=== PATIENT | female | born 1950 | race Caucasian/White ===

== ENCOUNTER → 2018-01-30 10:17 | Outpatient (CLI) | payer MEDICARE, SELFPAY ==
--- NOTE | 2018-01-30 | DI.MRI.S_ITS ---
PROCEDURE: MR KNEE RT WO CON INDICATIONS: UNILATERAL PRIMARY OSTEOARTHRITIS OF RIGHT KNEE TECHNIQUE: Noncontrast sagittal PD fast spin echo and T2 fast spin echo with fat saturation, sagittal 3-D FLASH with fat saturation; coronal T1 spin echo and PD fast spin echo with fat saturation, and axial PD fast spin echo with fat saturation through the knee. COMPARISON: [facility], CR, XR KNEE ARTHRITIC SERIES RT, 12/18/2017, 8:35. FINDINGS: Image quality: Excellent. Menisci: The medial meniscus is within normal limits. There is lateral extrusion of the lateral meniscus. Amorphous high signal intensity within the anterior and posterior horns, as well as the body of the lateral meniscus is present, demonstrating superior and inferior articular surface extension, indicating severe diffuse degenerative tearing. Cruciate ligaments: Posterior cruciate ligament is intact. Anterior cruciate ligament is attenuated. Medial structures: The medial collateral ligament appears intact. Visualized portions of the pes anserinus tendons appear normal. No abnormal bursal fluid. Lateral structures: The lateral collateral ligament demonstrates moderate T2 signal elevation at the femoral insertion site. The long and short heads of the biceps femoris tendon appear intact. The popliteus tendon appears normal. Iliotibial band appears normal. Anterior structures: The quadriceps and patellar tendons appear intact. Patellar alignment is normal. No femoral trochlear dysplasia or ventral trochlear prominence. No edema in the infrapatellar fat pad. Bones and cartilage: No bone marrow contusions or fractures. There is severe tricompartmental periarticular osteophyte formation. There is mild ill-defined subchondral T2 signal elevation within the posterior aspect of the lateral femoral condyle as well as the weightbearing aspect of the lateral tibial plateau. Severe diffuse articular cartilage loss overlies the weightbearing aspects of the lateral femoral condyle and lateral tibial plateau. Moderate to severe articular cartilage loss overlies the weightbearing aspects of the medial femoral condyle. Moderate diffuse articular cartilage loss overlies the weightbearing aspects of the medial tibial plateau. This moderately to cartilage loss overlies the lateral patellar facet adjacent to the apex. Severe articular cartilage loss overlies the patellar apex and adjacent aspect of the medial patellar facet. Joint space: There is a large knee joint effusion and a small Calloway's cyst. Multiple intra-articular loose bodies are present, largest of which are in the posterior midportion of the joint measuring roughly 5-6 mm diameter. Small ganglion cyst along the popliteus is present. Normal appearing synovial plicae are incidentally noted. IMPRESSION: 1. Tricompartmental osteoarthritis with associated articular cartilage loss. 2. Partial thickness ACL tear. 3. Severe degenerative tearing of the lateral meniscus. 4. Partial-thickness lateral collateral ligament tear. 5. Joint effusion and intra-articular bodies. Small Calloway's cyst. Small ganglion cyst along the popliteus. Dictated by: Thomas Krause M.D. on 01/30/2018 at 11:47 Approved by: Thomas Krause M.D. on 01/30/2018 at 11:54
== END ==
PROVIDERS: PCP Internal Medicine; Visit Provider Orthopaedic Surgery
DX: M17.11 Unilateral primary osteoarthritis, right knee (principal); S83.511A Sprain of anterior cruciate ligament of right knee, initial encounter; S83.421A Sprain of lateral collateral ligament of right knee, initial encounter; M23.261 Derangement of other lateral meniscus due to old tear or injury, right knee; M25.461 Effusion, right knee; M71.21 Synovial cyst of popliteal space [Baker], right knee; M67.461 Ganglion, right knee
CPT/HCPCS: 73721

== ENCOUNTER → 2018-03-24 12:14 | Outpatient (CLI) | payer MEDICARE, SELFPAY ==
[2018-03-24 12:53] LABS: Add Manual Diff / Slide Review NO; Basophils Percent Auto 1.1 % (0-2); Eosinophils Percent Auto 2.2 % (2-4); Hematocrit 40.8 % (36-46); Hemoglobin 13.4 g/dL (12.0-16.0); Lymphocytes Percent Auto 29.6 % (25-40); Mean Corpuscular HGB Conc 32.9 % (30-36); Mean Corpuscular Hemoglobin 31.7 PG (26-34); Mean Corpuscular Volume 96.5 fL (80-100); Monocytes Percent Auto 7.5 % (3-14); Neutrophils Absolute Auto 3800 /uL (3000-5900); Neutrophils Percent Auto 59.6 % (50-75); Platelet Count 282 X10^3/uL (150-400); Red Blood Cell Count 4.23 X10^6/uL (4.0-5.2); Red Cell Distribution Width 13.8 % (11.6-14.8); White Blood Cell Count 6.4 X10^3/uL (4.5-11.0)
[2018-03-24 13:44] LABS: Carbon Dioxide 30 mmol/L (22-32); Chloride 101 mmol/L (98-107); HEMOLYSIS < 15 (0-50); Potassium 4.9 mmol/L (3.4-5.1); Sodium 144 mmol/L (137-145)
== END ==
PROVIDERS: PCP Internal Medicine; Visit Provider Internal Medicine
DX: Z01.818 Encounter for other preprocedural examination (principal)
CPT/HCPCS: 36415; 80051; 85025

== ENCOUNTER 2018-03-25 12:43 | Day surgery (SDC) | payer MEDICARE, SELFPAY ==
[2018-03-17 09:31] VITALS: BMI 25.0
[2018-03-25] VITALS (9 sets, daily range): BP systolic 129–163; BP diastolic 75–89; PULSE 70–94; RESP 9–79; TEMP 36.2–36.5; O2SAT 5–98; BMI 25.0; BMI 26.6
--- NOTE | 2018-03-25 06:30 | DI.RAD.S_ITS ---
PROCEDURE: XR KNEE RT 1TO2V INDICATIONS: post op films TECHNIQUE: 3 views of the knee were acquired. COMPARISON: [facility], MR, MR KNEE RT WO CON, 01/30/2018, 10:30. FINDINGS: Expected postoperative changes are present related to a total right knee arthroplasty. The metallic prosthetic components are properly seated without periprosthetic fracture evident. No suspicious osseous lesions are identified. There is no dislocation. Within the overlying soft tissues there is expected soft tissue air, edema, and fluid related to the surgery. Skin laney are seen running into margin of the knee. Scattered surgical clips are seen overlying the left calf region. No unexpected radiopaque foreign bodies are identified. IMPRESSION: Expected postoperative changes related to a total right knee arthroplasty. Dictated by: Junaid Barfield M.D. on 03/25/2018 at 15:23 Approved by: Junaid Barfield M.D. on 03/25/2018 at 15:28
[2018-03-25] MEDS: PREGABALIN 75 MG CAPSULE PO (13:16)
[2018-03-25] MEDS: ACETAMINOPHEN 325 MG TABLET 975 MG PO ×2 (13:16→20:17)
[2018-03-25] MEDS: CELECOXIB 200 MG CAPSULE PO (13:16)
[2018-03-25] MEDS: LACTATED RINGERS 1,000 ML 42 ML IV ×2 (13:22→15:28)
--- NOTE | 2018-03-25 13:52 | PM.PREOP ---
Pre-operative Note Interval Note Pre-op Check: Yes History & Physical Reviewed by Physician and Yes Exam Performed Changes: No
--- NOTE | 2018-03-25 13:54 | P.OP_ITS ---
Operative Date/Time/Diagnoses Date of procedure: 03/25/18 Time of procedure: 15:33 Pre-op diagnosis: Right knee osteoarthritis Post-op diagnosis: same Procedure & Clinicians Procedure: Right total knee arthroplasty Same procedure as scheduled: Yes Indications: The patient presents today for total knee arthroplasty after failure of conservative treatment. The nature of the procedure including the risks and benefits, alternatives, postoperative course and expected outcome were discussed and all questions answered. Consent was obtained. Operative site confirmed and marked. Surgeon: Jose Mansfield Quarter Section Ironer: William Davidson Anesthesia Type: Spinal and Local Operative Notes Findings: Severe osteoarthritis with valgus alignment. Closure Type: primary Specimen(s): none sent Implants & Drains: [employer] BCS: 6 femoral component, 5 tibial component, 9 mm BCS polyethylene tray and 32 x 9 mm round patella Applied: implant(s) Estimated Blood Loss (mL): 75 Blood products transfused: none Tourniquet time (min): 23 Procedure in detail: The patient was taken to the operative suite and placed under spinal anesthesia. The patient was given prophylactic antibiotics prior to surgery. The patient was also given tranexamic acid, 1 g, just prior to surgery for postoperative hemostasis. The lateral knee was prepped and the joint injected with 20 mL of 1% Lidocaine with epinephrine. The knee was then prepped and draped in usual sterile fashion. The leg was exsanguinated with an Esmarch dressing and the tourniquet raised to 250 torr. A 15 cm anterior incision was made. Next a medial trivector arthrotomy was made. The extensor mechanism was marked to ensure accurate repair. Initial exposing dissection was carried out medially and laterally. The knee was then extended and the patellar thickness was measured and a cut made removing approximately 9 mm of bone with a goal of restoring normal patellar thickness. The patella was then sized and drilled. Some excess lateral bone was excised and the patellofemoral ligament released. The tourniquet was then released. The knee was then flexed and the [employer] femoral guide was placed. The anterior pins were placed and the distal rotation holes drilled. The distal cutting guide was placed and the templated distal femoral cut was made. The templating cutting block was then placed and the anterior, posterior and chamfer cuts made. The [employer] tibial guide was placed and the alignment checked along the axis of the proximal tibial with a roberto carlos. The proximal tibial cut was then made with an oscillating saw. All meniscus and bony debris was then removed. Flexion extension gaps were checked. The knee was mildly tight laterally as expected from her preoperative alignment. The medial lateral balance was corrected doing a release of the lateral capsular tissues with a 15 blade using a pie crust technique. This nicely balanced the medial lateral spaces. The soft tissues were then injected with a combination of 20 mL of half percent Marcaine with epinephrine and 20 mL of Exparel. The trial components were then placed. The knee went into full extension and flexion beyond 120?. There was excellent medial- lateral balance throughout motion. Patellar tracking was excellent. The trial components were removed and size is confirmed for the final implants. The knee was then exsanguinated with an Esmarch dressing and the tourniquet reapplied for cementing. The knee was cleansed with Pulsavac irrigation and dried. The final components were cemented in with high viscosity vacuum mixed bone cement with antibiotics. The knee was held in extension and the patellar clamp until the cement had adequately cured. The knee was then irrigated with dilute Betadine solution. The extensor mechanism was closed with 5 interrupted #1 Vicryl sutures in 90 degrees of flexion. The joint was then injected with a combination of 1 g of tranexamic acid and 20 mL of quarter percent Marcaine with epinephrine. The subcutaneous tissue was closed with 2-0 Vicryl. The skin was closed with laney and surgical adhesive. An Aquacell dressing and Quoc wrap were then applied. Complications: none Condition: stable Disposition: PACU Plan for aftercare: Chidi
[2018-03-25] MEDS: CEFAZOLIN 2 GM/100 ML FROZ.PIGGY IV ×2 (14:08→21:46)
--- NOTE | 2018-03-25 14:42 | SUR.OPER ---
Supine on padded OR bed. Pillow under head, arms secured on padded armboards <90 degree abduction. Safety belt across torso. Non-operative leg secured with tape over blanket over lower leg. Operative leg secured in DeMayo/Giovanin positioner. Foam padded brace at thigh of operative leg.
[2018-03-25] MEDS: BUPIVACAINE 0.5% W/ EPI (PF) 20 ML, BUPIVACAINE LIPOSOME 266 MG, SODIUM CHLORIDE 0.9% 8... INJ (14:50)
[2018-03-25] MEDS: BUPIVACAINE 0.5% W/ EPI (PF) 10 ML, TRANEXAMIC ACID 1,000 MG, SODIUM CHLORIDE 0.9% 20 ML INJ (14:51)
[2018-03-25] MEDS: TRANEXAMIC ACID 1,000 MG VIAL 1000 MG INJ (14:52)
[2018-03-25] MEDS: LIDOCAINE 1% W/EPI INJ 20 ML INJ (14:53)
--- NOTE | 2018-03-25 16:17 | SUR.PHASEI ---
stable pacu stay report called to acute care via bed.
[2018-03-25] MEDS: OXYCODONE IR 5 MG TABLET PO ×2 (16:46→22:32)
[2018-03-25] MEDS: LACTATED RINGERS 1,000 ML 125 ML IV (16:47)
--- NOTE | 2018-03-25 17:40 | PT.IIE ---
Current Diagnoses Unilateral primary osteoarthritis, right knee (03/25/18) Surgery Performed Operation Date: 03/25/18 14:30 Actual Procedures p Total Knee Arthroplasty(Right) - Jose Mansfield MD Surgical History (Last Updated 03/17/18 @ 10:22 by Vianca Rahman, RN) History of hand surgery (Acute ~1970) History of tonsillectomy (Acute) History of total hysterectomy (Acute) Medical History (Last Updated 03/17/18 @ 10:03 by Vianca Rahman RN) Anemia (Acute) Back pain (Acute) Degenerative arthritis of right knee (Acute) Depression (Acute) Head trauma (Acute) Headache, migraine (Acute) Thyroid disease (Acute) Traumatic subdural hematoma (Acute ~1995) Physical Therapy Inpatient Evaluation/Re-Eval M1 PT/OT-IP Prior Functional Status Start: 03/25/18 17:30 Freq: NEEDED Status: Active Protocol: Document 03/25/18 17:30 EA (Rec: 03/25/18 17:43 EA [id number]) Medical Review Prior Functional Status Medical History Reviewed Yes Diet/Fluid Consistency Regular Communication normal Mobility and Gait Indepedent with limited distance due to pain with no use of walking device. Fall x 5 in the last 6 months due to knee pain and lost of strength to RLE Activities of Daily Living and IADL's Indep Social History Household Members spouse children Living Arrangements House Number of Floors (Floors) One Floor Number of Stairs To Enter/Railing? 3 stairs to get in to the main floor Home Equipment Front Wheel Walker Straight Cane Raised Toilet Seat w/Armrests Employment Status Retired M2 PT-IP Current Condition Start: 03/25/18 17:30 Freq: NEEDED Status: Active Protocol: Document 03/25/18 17:30 EA (Rec: 03/25/18 17:43 EA [id number]) Physical Therapy Current Condition Current Condition Evaluation Date 03/25/18 Treatment Diagnosis S/P right TKA Onset Date 03/25/18 M3 PT-IP Subjective Start: 03/25/18 17:30 Freq: NEEDED Status: Active Protocol: Document 03/25/18 17:30 EA (Rec: 03/25/18 17:43 EA [id number]) Subjective Physical Therapy Visit Type Type Initial Evaluation Visit Start Time 16:50 Visit Stop Time 17:30 Total Visit Minutes 40 Physical Therapy Visit Comments Patient Comments Patient agreeable to mobilize and transfer to chair for dinner. Patient Goals Patient wants to be independent in all transfers and functional mobility prior to discharge. Therapy Pain Assessment Pain When Pain Assessed At Rest Pain Present Pain Present Pain Reported Location Right Knee Intensity 2 Scale Used Numeric (1 - 10) Description Acute M4 PT-IP Mobility and Gait Start: 03/25/18 17:30 Freq: NEEDED Status: Active Protocol: Document 03/25/18 17:30 EA (Rec: 03/25/18 17:43 EA [id number]) PT-Bed Mobility Assessment Supine to Sit Supine to Sit Standby Assistance Sit to Supine Sit to Supine Standby Assistance Scooting Scooting Up and Down in Bed Standby Assistance PT-Transfer Assessment Sit to and From Stand Sit to and from Stand Contact Guard Assistance Equipment Transfer Assistive Device Gait Belt Front Wheeled Walker Transfers Transfer Technique stepping Transfer Ability Level of Assist Contact Guard Assistance Gait Assessment Gait Gait Assistance Required: Contact Guard Assist Distance (Feet) 6 Able to Maintain Weight Bearing Status Yes During Gait Assistive Devices Assistive Device Gait Belt Front Wheeled Walker Gait Deviations General Gait Pattern Antalgic Step-to Gait Factors Limiting Gait Function Factors Limiting Gait Function Decreased Activity Tolerance Decreased Strength Limited Range of Motion Pain Poor Balance PT-Balance Assessment Sitting Balance and Reactions Static Sitting Balance Ability Good Dynamic Sitting Balance Ability Good Standing Balance and Reactions Static Standing Balance Ability Good Dynamic Standing Balance Ability Fair M5 PT-IP Objective Assessments Start: 03/25/18 17:30 Freq: NEEDED Status: Active Protocol: Document 03/25/18 17:30 EA (Rec: 03/25/18 17:43 EA [id number]) Orientation Orientation/Cognition Orientation Name Age Month Date Year Day of Week Language Function Ability No Deficits Noted Safety Awareness Understands Safety Issues Memory Description No Deficits Noted Gross Range of Motion Upper Extremity ROM Assessment Within Functional Limits Lower Extremity ROM Assessment Right Impaired Impairments 0-100 knee flexion/extension Strength Upper Extremity Strength Assessment Within Functional Limits Lower Extremity Strength Assessment Right Impaired Knee at least 3/5 Coordination Assessment Gross Coordination Gross Coordination WNL Assessment Foot Tapping Test Normal Performance Heel on Treadwell Test Normal Performance Sensation Assessment Sensation Gross Sensation WNL Light Touch Intact Proprioception (Position) Intact M6 PT-IP Treatment Start: 03/25/18 17:30 Freq: NEEDED Status: Active Protocol: Document 03/25/18 17:30 EA (Rec: 03/25/18 17:43 EA [id number]) Physical Therapy Treatment Exercises Exercises Ankle Pumps Quad Sets Heel Slides Straight Leg Raises Short Arc Quads Passive Knee Extension Hang Seated Knee Flexion/Extension Education Education Provided Precautions Weight Bearing Status Post-Op Packet Safety M7 PT-IP Assessment and Plan Start: 03/25/18 17:30 Freq: NEEDED Status: Active Protocol: Document 03/25/18 17:30 EA (Rec: 03/25/18 17:43 EA [id number]) PT Summary Assessment and Plan Potential Rehabilitation Potential Good Status of Condition at Evaluation Stable Summary Impairments Pain ROM Strength Balance Bed Mobility Transfers Gait Activity Tolerance Assessment Summary Patient exhibits difficulty with transfers and mobility due to RLE weakness, pain, and decreased activity tolerance. Patient requires assistance for transfers and mobility for safety at this time. Patient demonstrates good potential for recovery. Goals Bed Mobility Goal Independent Transfer Goal Independent Gait Goal Independent Gait Distance 30 ft Other Goals 3 steps of stair with no rails Days to Meet Goals 2 Frequency of Treatment Frequency Of Treatment Twice a Day Treatment Plan Physical Therapy Treatment Plan Bed Mobility Training Transfer Training Gait Training Therapeutic Exercise Balance Retraining Post Op Education Discharge Planning Hot or Cold Pack Neuromuscular Re-ed Recommendations To Nursing Amount of Assist Needed 1 Person Assist Discharge Recommendations PT Discharge Recommendations Home with 18/11 Assist Outpatient PT
--- NOTE | 2018-03-25 18:05 | PC.NURSE ---
1635: Pt to acute care from PACU. Alert/oriented. Pain 11/04. Right knee jordan wrap/aquacell c/d/i. CMS/pp+. Reports slight numbness in top of foot. RA 95-97%. IV fluids started per order. Pt/family oriented to room/call light. P.T. in to work with pt. Pt incontinent with standing up to bedside. Will need jordan wrap removed/or changed-talked with pt about doing this after dinner/agreeable. Dizzy with transfer. BP 99/48. Pt own med not in original Rx bottle. Requested family member bring actual bottle/pills in for pharmacy verification. Spouse/pt declined to bring in at this time.
[2018-03-25] MEDS: HYDROMORPHONE 0.5 MG INJ IV (18:39)
[2018-03-25] MEDS: IBUPROFEN 600 MG TABLET PO (18:39)
[2018-03-25] MEDS: SIMVASTATIN 20 MG TABLET PO (20:17)
[2018-03-25] MEDS: ASPIRIN EC 81 MG TABLET PO (20:17)
[2018-03-26] MEDS: LACTATED RINGERS 1,000 ML 125 ML IV (02:41)
[2018-03-26] MEDS: HYDROMORPHONE 0.5 MG INJ IV (04:33)
[2018-03-26] MEDS: IBUPROFEN 600 MG TABLET PO ×2 (04:38→10:57)
[2018-03-26 04:57] VITALS: BP 132/72; PULSE 79; RESP 18; TEMP 36.7; O2SAT 96
--- NOTE | 2018-03-26 05:00 | PC.NURSE ---
Pt. was sound asleep when checked @ 0130, 0240 & 0330 snoring lightly. Woke up this morning @ 0420 C/O severe pain to her RT. knee retaed pain level @ 02/04, medicated with 0.5 mg. of Dilaudid IVP @ 0433 & Ibuprofen 600 mg. @ 0438 took pill with milk & given her some saltine & rudolph crackers, ice packs to her RT. knee. Will cont. POC & monitor.
[2018-03-26] MEDS: OXYCODONE IR 5 MG TABLET PO ×2 (06:00→08:28)
[2018-03-26] MEDS: CEFAZOLIN 2 GM/100 ML FROZ.PIGGY IV (06:01)
[2018-03-26] MEDS: LEVOTHYROXINE 100 MCG TABLET PO (06:05)
[2018-03-26 06:10] LABS: Hematocrit 29.9 % (36-46); Hemoglobin 10.4 g/dL (12.0-16.0)
[2018-03-26 08:06] VITALS: BP 117/69; PULSE 72; RESP 16; TEMP 36.9; O2SAT 99
[2018-03-26] MEDS: ASPIRIN EC 81 MG TABLET PO (08:27)
[2018-03-26] MEDS: ACETAMINOPHEN 325 MG TABLET 975 MG PO ×2 (08:27→14:52)
[2018-03-26] MEDS: buPROPion XL 150 MG TAB 300 MG PO (08:28)
[2018-03-26] MEDS: lamoTRIgine 100 MG TABLET 200 MG PO (08:28)
--- NOTE | 2018-03-26 08:58 | CM.DANOTE ---
DCP: Case received, EMR reviewed and met with patient. Introduced self and role. DCP template completed with information currently available. Patient is a 67 year old female who admitted yesterday afternoon to the care of the hospitalist team. PCP: Dr. Isidro. Payer: confirmed: Medicare/[employer]. Patient came to hospital for procedure, Total Knee Arthroplasty. Patient has history of Osteoarthritis. Met with patient in room. Pleasant. Lives in [place] with her . Is independent at home. Daughter was in room at bedside as well. Stated that she will be staying with her mom for a while after her surgery. Patient already has outpatient physical therapy set up in [place]. P: DCP to continue to follow. Patient should be able to discharge home after working with the physical therapy team as well. Laura Escobar RN/Egg Processing Supervisor
--- NOTE | 2018-03-26 09:25 | PT.IPTN ---
Current Diagnoses Unilateral primary osteoarthritis, right knee (03/25/18) Surgery Performed Operation Date: 03/25/18 14:30 Actual Procedures p Total Knee Arthroplasty(Right) - Jose Mansfield MD Physical Therapy Treatment Note M2 PT-IP Current Condition Start: 03/25/18 17:30 Freq: NEEDED Status: Active Protocol: Document 03/25/18 17:30 EA (Rec: 03/25/18 17:43 EA [id number]) Physical Therapy Current Condition Current Condition Evaluation Date 03/25/18 Treatment Diagnosis S/P right TKA Onset Date 03/25/18 M3 PT-IP Subjective Start: 03/25/18 17:30 Freq: NEEDED Status: Active Protocol: Document 03/26/18 09:25 GGD (Rec: 03/26/18 11:59 GGD [id number]) Subjective Physical Therapy Visit Type Type Treatment Note Visit Start Time 09:00 Visit Stop Time 09:25 Total Visit Minutes 25 Number of HOUSE DESIGNER Visits 1 Physical Therapy Visit Comments Patient Comments Pt states she willing to mobilize and hopes to go home. Therapy Pain Assessment Pain When Pain Assessed At Rest Pain Present Pain Present Pain Reported Location Right Knee Intensity 5 Scale Used Numeric (1 - 10) M4 PT-IP Mobility and Gait Start: 03/25/18 17:30 Freq: NEEDED Status: Active Protocol: Document 03/26/18 09:25 GGD (Rec: 03/26/18 11:59 GGD [id number]) PT-Bed Mobility Assessment Supine to Sit Supine to Sit Standby Assistance Sit to Supine Sit to Supine Standby Assistance Scooting Scooting Up and Down in Bed Standby Assistance PT-Transfer Assessment Sit to and From Stand Sit to and from Stand Contact Guard Assistance Equipment Transfer Assistive Device Gait Belt Front Wheeled Walker Transfers Transfer Destination Bed Transfer Ability Level of Assist Contact Guard Assistance Gait Assessment Gait Gait Assistance Required: Contact Guard Assist Distance (Feet) 120 Able to Maintain Weight Bearing Status Yes During Gait Assistive Devices Assistive Device Gait Belt Front Wheeled Walker Gait Deviations General Gait Pattern Antalgic Step-to Gait Factors Limiting Gait Function Factors Limiting Gait Function Decreased Activity Tolerance Decreased Strength Limited Range of Motion Pain Poor Balance Comments Gait Comments Pt needed cues for heel down with gait. Stair Climbing Assessment Evaluation Level of Assist On Stairs Contact Guard Assistance Devices Stair Climbing Assistive Devices Front Wheel Walker Technique/Endurance Stair Climbing Direction Ascend and Descend Stair Climbing Technique Step to Step Number of Steps Climbed 2 Query Text: Stair Climbing Set # Repetitions (reps) 1 Comments Stair Climbing Comments Min A for FWW stabilization and mod cues. M5 PT-IP Objective Assessments Start: 03/25/18 17:30 Freq: NEEDED Status: Active Protocol: Document 03/25/18 17:30 EA (Rec: 03/25/18 17:43 EA [id number]) Orientation Orientation/Cognition Orientation Name Age Month Date Year Day of Week Language Function Ability No Deficits Noted Safety Awareness Understands Safety Issues Memory Description No Deficits Noted Gross Range of Motion Upper Extremity ROM Assessment Within Functional Limits Lower Extremity ROM Assessment Right Impaired Impairments 0-100 knee flexion/extension Strength Upper Extremity Strength Assessment Within Functional Limits Lower Extremity Strength Assessment Right Impaired Knee at least 3/5 Coordination Assessment Gross Coordination Gross Coordination WNL Assessment Foot Tapping Test Normal Performance Heel on Treadwell Test Normal Performance Sensation Assessment Sensation Gross Sensation WNL Light Touch Intact Proprioception (Position) Intact M6 PT-IP Treatment Start: 03/25/18 17:30 Freq: NEEDED Status: Active Protocol: Document 03/26/18 09:25 GGD (Rec: 03/26/18 11:59 GGD [id number]) Physical Therapy Treatment Exercises Exercises Ankle Pumps Quad Sets Heel Slides Seated Knee Flexion/Extension Education Education Provided Weight Bearing Status Safety M7 PT-IP Assessment and Plan Start: 03/25/18 17:30 Freq: NEEDED Status: Active Protocol: Document 03/26/18 09:25 GGD (Rec: 03/26/18 11:59 GGD [id number]) PT Summary Assessment and Plan Summary Assessment Summary Pt had increase in pain with mobility. She was able to progress gait and weight bearing tolerance with cues. She was safe and stable with stair mobility. Frequency of Treatment Frequency Of Treatment Twice a Day Treatment Plan Physical Therapy Treatment Plan Bed Mobility Training Transfer Training Gait Training Therapeutic Exercise Balance Retraining Post Op Education Discharge Planning Hot or Cold Pack Neuromuscular Re-ed Recommendations To Nursing Amount of Assist Needed 1 Person Assist Discharge Recommendations PT Discharge Recommendations Home with 18/11 Assist Outpatient PT
--- NOTE | 2018-03-26 09:43 | PM.DS.1 ---
History of Present Illness Date Patient Seen: 03/26/18 Time Patient Seen: 09:44 Chief complaint: [id number] Narrative: Hospital day 2, postop day 1 following right total knee arthroplasty by Dr. Mansfield. Patient has not had any physical therapy yet. Does note noticeable pain to her right knee. Has been up to bathroom. She has a [facility] patient. She would like to go home today if possible. Her daughter is with her and is going to be taking care of her. Discharge Providers Date of admission: 03/25/18 12:43 Primary care physician: Ezekiel Isidro MD Consults: 03/25/18 16:38 Consult to Discharge Planning Routine Comment: Consult to Physical Therapy Evaluate & Treat Comment: Physician Instructions: postop TKA protocol Consult to Respiratory Therapy Evaluate & Treat Comment: Physician Instructions: Evaluate and treat Discharge provider: Daniel Palacios PA-C Discharge Date: 03/26/18 Summary Discharge Diagnosis: Status post right total knee arthroplasty Hospital Course: Patient brought to hospital on 03/25/2018 for above-noted surgery. Remained stable postoperatively. Possible discharge to home on postop day 1 if cleared by physical therapy. Status at Discharge Cognitive/behavioral status at discharge: Alert, oriented in no acute distress Functional status at discharge: uses cane/walker Overall status at discharge: patient is progressing back to baseline Time Spent with Patient Less than 30 minutes Exam Vital Signs (past 8 hours): - 03/26/18 04:57 03/26/18 08:06 Temperature 98.0 F 98.4 F Pulse Rate 79 72 Respiratory Rate 18 16 Blood Pressure 132/72 117/69 Pulse Oximetry 96 99 Oxygen Delivery Method Room Air Narrative Exam Narrative: Legs. Quoc wrap an Aquacel dressing to right knee is dry without drainage or inflammation. No calf pain or swelling. Pulses symmetrical. Patient able to fire her quad. Objective Labs Result Diagrams: 03/26/18 05:56 Labs: Laboratory Results - last 24 hr 03/26/18 05:56 Hgb 10.4 L Hct 29.9 L Discharge Plan Discharge Plan Patient Disposition: Home Discharge comment: Discharged home later today if cleared by physical therapy. Discharge Med Rec/Prescriptions Prescriptions: New acetaminophen 325 mg Tablet 975 mg PO TID Qty: 30 RF: 0 aspirin 81 mg Tablet,Delayed Release (Dr/Ec) 81 mg PO BID Qty: 60 RF: 0 oxycodone 10 mg Tablet 10 mg PO Q3HR PRN (Reason: Pain, Severe (7-10)) Qty: 30 RF: 0 meloxicam 7.5 mg tablet 15 mg PO BID Qty: 60 RF: 0 Continue lamotrigine [Lamictal] 200 mg Tablet 200 mg PO DAILY RF: 0 tramadol 50 mg Tablet 50 - 100 mg PO BID RF: 0 dextroamphetamine-amphetamine [Adderall] 30 mg Tablet 60 mg PO DAILY RF: 0 levothyroxine [Levoxyl] 100 mcg Tablet 100 mcg PO DAILY RF: 0 simvastatin 20 mg Tablet 20 mg PO BEDTIME RF: 0 ibuprofen 200 mg Tablet 800 mg PO BID PRN (Reason: Pain) RF: 0 bupropion HCl [Wellbutrin XL] 300 mg Tablet Extended Release 24 Hr 300 mg PO DAILY RF: 0 mupirocin [Centany AT] 2 % Ointment Kit 1 applic TOPICAL BID RF: 0 Provider Discharge Instructions Diet: Diet as Tolerated Activity: Ambulate as tolerated. Continue range of motion of knee as tolerated. Cold/Heat Therapy: Ice to knee as needed Skin/Wound/Dressing Care Report to your healthcare provider any signs of infection, such as:: chills, fever, night sweats, increased pain and unusual drainage Other wound treatment: Keep Aquacel dressing on knee in till postop visit. Visit Report/Discharge Packet Instructions: DI for Knee Replacement Discharge Data Primary Care Provider: Ezekiel Isidro Attending Provider: Jose Mansfield Admit Date/Time: 03/25/18 12:43 Quality VTE Deep Vein Thrombosis/Pulmonary Embolism Present on Admission: No
[2018-03-26] MEDS: OXYCODONE IR 10 MG TABLET PO ×2 (10:58→13:55)
[2018-03-26 11:43] VITALS: BP 134/71; PULSE 82; RESP 18; TEMP 36.4; O2SAT 95
--- NOTE | 2018-03-26 14:55 | PT.IPTN ---
Current Diagnoses Unilateral primary osteoarthritis, right knee (03/25/18) Surgery Performed Operation Date: 03/25/18 14:30 Actual Procedures p Total Knee Arthroplasty(Right) - Jose Mansfield MD Physical Therapy Treatment Note M2 PT-IP Current Condition Start: 03/25/18 17:30 Freq: NEEDED Status: Active Protocol: Document 03/25/18 17:30 EA (Rec: 03/25/18 17:43 EA [id number]) Physical Therapy Current Condition Current Condition Evaluation Date 03/25/18 Treatment Diagnosis S/P right TKA Onset Date 03/25/18 M3 PT-IP Subjective Start: 03/25/18 17:30 Freq: NEEDED Status: Active Protocol: Document 03/26/18 14:55 GGD (Rec: 03/26/18 15:37 GGD [id number]) Subjective Physical Therapy Visit Type Type Treatment Note Visit Start Time 14:30 Visit Stop Time 14:55 Total Visit Minutes 25 Number of OPERATIONS SYSTEMS SPECIALIST Visits 2 Physical Therapy Visit Comments Patient Comments Pt states she is feeling better. Therapy Pain Assessment Pain When Pain Assessed At Rest Pain Present Pain Present Pain Reported Location Right Knee Intensity 3 Scale Used Numeric (1 - 10) M4 PT-IP Mobility and Gait Start: 03/25/18 17:30 Freq: NEEDED Status: Active Protocol: Document 03/26/18 14:55 GGD (Rec: 03/26/18 15:37 GGD [id number]) PT-Bed Mobility Assessment Supine to Sit Supine to Sit Standby Assistance Scooting Scooting to Edge of Bed Standby Assistance PT-Transfer Assessment Sit to and From Stand Sit to and from Stand Contact Guard Assistance Equipment Transfer Assistive Device Gait Belt Front Wheeled Walker Transfers Transfer Destination Chair Transfer Ability Level of Assist Contact Guard Assistance Gait Assessment Gait Gait Assistance Required: Contact Guard Assist Distance (Feet) 100 Able to Maintain Weight Bearing Status Yes During Gait Assistive Devices Assistive Device Gait Belt Front Wheeled Walker Gait Deviations General Gait Pattern Antalgic Step-to Gait Factors Limiting Gait Function Factors Limiting Gait Function Decreased Activity Tolerance Decreased Strength Limited Range of Motion Pain Poor Balance M5 PT-IP Objective Assessments Start: 03/25/18 17:30 Freq: NEEDED Status: Active Protocol: Document 03/25/18 17:30 EA (Rec: 03/25/18 17:43 EA [id number]) Orientation Orientation/Cognition Orientation Name Age Month Date Year Day of Week Language Function Ability No Deficits Noted Safety Awareness Understands Safety Issues Memory Description No Deficits Noted Gross Range of Motion Upper Extremity ROM Assessment Within Functional Limits Lower Extremity ROM Assessment Right Impaired Impairments 0-100 knee flexion/extension Strength Upper Extremity Strength Assessment Within Functional Limits Lower Extremity Strength Assessment Right Impaired Knee at least 3/5 Coordination Assessment Gross Coordination Gross Coordination WNL Assessment Foot Tapping Test Normal Performance Heel on Treadwell Test Normal Performance Sensation Assessment Sensation Gross Sensation WNL Light Touch Intact Proprioception (Position) Intact M6 PT-IP Treatment Start: 03/25/18 17:30 Freq: NEEDED Status: Active Protocol: Document 03/26/18 14:55 GGD (Rec: 03/26/18 15:37 GGD [id number]) Physical Therapy Treatment Exercises Exercises Ankle Pumps Quad Sets Heel Slides Seated Knee Flexion/Extension Education Education Provided Post-Op Packet Safety M7 PT-IP Assessment and Plan Start: 03/25/18 17:30 Freq: NEEDED Status: Active Protocol: Document 03/26/18 14:55 GGD (Rec: 03/26/18 15:37 GGD [id number]) PT Summary Assessment and Plan Summary Assessment Summary Pt improved with mobility. She had better tolerance to weight bearing with gait. She was SBA to CGa for mobility. She did need cues for gait pattern. She safe for home D/C when medically stable. Frequency of Treatment Frequency Of Treatment Twice a Day Treatment Plan Physical Therapy Treatment Plan Bed Mobility Training Transfer Training Gait Training Therapeutic Exercise Balance Retraining Post Op Education Discharge Planning Hot or Cold Pack Neuromuscular Re-ed Recommendations To Nursing Amount of Assist Needed 1 Person Assist Discharge Recommendations PT Discharge Recommendations Home with 18/11 Assist Outpatient PT
[2018-03-26 15:30] VITALS: BP 123/69; PULSE 83; RESP 16; TEMP 36.8; O2SAT 94
== END 2018-03-26 16:45 | disposition home or self-care (01) ==
LOC: AC 03-26 12:26 → OR 03-27 07:42
PROVIDERS: PCP Internal Medicine; Visit Provider Orthopaedic Surgery
PROC: 0SRC0JZ Replacement of Right Knee Joint with Synthetic Substitute, Open Approach (ICD-10-PCS; CPT 27447; principal; 2018-03-25 14:30)
DX: M17.11 Unilateral primary osteoarthritis, right knee (principal); D64.9 Anemia, unspecified; F33.41 Major depressive disorder, recurrent, in partial remission
CPT/HCPCS: 27447; 36415; 73560; 80051; 85014; 85018; 85025; 97110; 97116; 97161; 97530; 97535; C1776; C9290; J0690; J1170; J2250; J2704; J3010

== ENCOUNTER → 2018-06-17 14:56 | Outpatient (CLI) | payer MEDICARE, SELFPAY ==
[2018-03-25 16:38] VITALS: BMI 26.6
[2018-06-17 15:51] LABS: Add Manual Diff / Slide Review NO; Basophils Absolute Auto 100 /uL (0-100); Eosinophils Absolute Auto 200 /uL (0-450); Eosinophils Percent Auto 3.5 % (2-4); Hematocrit 36.4 % (36-46); Hemoglobin 11.8 g/dL (12.0-16.0); Lymphocytes Absolute Auto 2000 /uL (1100-4500); Lymphocytes Percent Auto 34.4 % (25-40); Mean Corpuscular HGB Conc 32.6 % (30-36); Mean Corpuscular Hemoglobin 29.1 PG (26-34); Mean Corpuscular Volume 89.4 fL (80-100); Monocytes Absolute Auto 500 /uL (0-900); Monocytes Percent Auto 8.2 % (3-14); Neutrophils Absolute Auto 3000 /uL (1500-7000); Neutrophils Percent Auto 52.9 % (50-75); Platelet Count 278 X10^3/uL (150-400); Red Blood Cell Count 4.07 X10^6/uL (4.0-5.2); Red Cell Distribution Width 14.4 % (11.6-14.8); White Blood Cell Count 5.8 X10^3/uL (4.5-11.0)
[2018-06-17 16:39] LABS: C-Reactive Protein Quant < 0.5 mg/dL (<1.0)
[2018-06-17 17:21] LABS: Erythrocyte Sedimentation Rate 16 MM/HR (0-20)
== END ==
PROVIDERS: PCP Internal Medicine; Visit Provider Physician Assistant Surgical
DX: M17.12 Unilateral primary osteoarthritis, left knee (principal)
CPT/HCPCS: 36415; 85025; 85651; 86140

== ENCOUNTER → 2018-08-14 12:31 | Outpatient (CLI) | payer MEDICARE, SELFPAY ==
[2018-03-25 16:38] VITALS: BMI 26.6
--- NOTE | 2018-08-14 12:32 | DI.US.S_ITS ---
PROCEDURE: US THYROID INDICATIONS: NODULE TECHNIQUE: Real-time scanning was performed of the thyroid gland, with image documentation. COMPARISON: None. FINDINGS: Right: The right thyroid lobe measures 1.1 x 1.2 x 3.9 cm. There are 2 small nodules at the right thyroid lobe measuring 5 x 4 x 6 mm at the middle third and 3 x 5 x 8 mm at the inferior third. These are both solid, hypoechoic, and appear benign. Left: The left thyroid lobe measures 0.9 x 1.0 x 2.7 cm. Isthmus: 1.9 mm IMPRESSION: Incidental finding of 2 small right thyroid lobe nodules with maximal dimension of 6 mm and 8 mm respectively. No biopsy recommended. Dictated by: Juwan Maldonado M.D. on 08/14/2018 at 14:46 Approved by: Juwan Maldonado M.D. on 08/14/2018 at 14:47
== END ==
PROVIDERS: PCP Internal Medicine; Visit Provider Surgery
DX: R13.10 Dysphagia, unspecified (principal); E04.2 Nontoxic multinodular goiter
CPT/HCPCS: 76536

== ENCOUNTER → 2018-08-19 10:16 | Outpatient (CLI) | payer MEDICARE, SELFPAY ==
[2018-03-25 16:38] VITALS: BMI 26.6
--- NOTE | 2018-08-19 10:18 | DI.RAD.S_ITS ---
PROCEDURE: FL UPPER GI W AIR INDICATIONS: Possible thyroid nodule COMPARISON: None. FINDINGS: KUB: Preprocedural side door man film demonstrates a normal bowel gas pattern. No suspicious abdominal calcifications. Visualized solid organ contours appear normal. Bony structures appear unremarkable. Esophagus: Esophageal mucosa is normal on air-contrast views. On single-contrast views, there is episodic abnormal esophageal peristalsis, with a distal esophageal tertiary contractions consistent with esophageal dysmotility. No strictures, extrinsic mass effects, or diverticula. There is a small to moderate sliding hiatal hernia with moderate episodic spontaneous and elicited gastroesophageal reflux. Stomach: The stomach is normally distensible, with normal rugal fold thickness. No mucosal masses or ulcers. Pylorus and duodenal bulb appear normal in morphology. Duodenal folds are normal in thickness as well. IMPRESSION: Small to moderate sliding type hiatal hernia, with episodic moderate spontaneous and elicited gastroesophageal reflux. There is no sign of secondary mass or stricture but there is significant episodic esophageal dysmotility as indicated by presence of tertiary contractions within the distal half of the esophagus. Dictated by: Juwan Maldonado M.D. on 08/19/2018 at 12:00 Approved by: Juwan Maldonado M.D. on 08/19/2018 at 12:02
== END ==
PROVIDERS: PCP Internal Medicine; Visit Provider Surgery
DX: R13.10 Dysphagia, unspecified (principal); K44.9 Diaphragmatic hernia without obstruction or gangrene; K21.9 Gastro-esophageal reflux disease without esophagitis; K22.4 Dyskinesia of esophagus
CPT/HCPCS: 74247

== ENCOUNTER 2019-03-23 08:15 | Outpatient (RCR) | payer MEDICARE, SELFPAY ==
[2018-09-07 16:46] VITALS: BMI 26.6
--- NOTE | 2018-12-18 15:30 | PT.OPPOC ---
Current Diagnoses Stiffness of right hip, not elsewhere classified (12/18/18) Urge incontinence (12/18/18) Cystocele, unspecified (12/18/18) Visit Care Team Role Provider Type Ezekiel Isidro MD Primary Care Provider Physician Specialty: Internal Medicine Address: [address], [address], [place], [address] Email: NORRIS Hobbs Attending Provider Non-Staff Specialty: Medical Address: [address] [place], [address] Email: Plan Of Care PT-OP-T Assessment and Plan Start: 12/18/18 08:11 Freq: Status: Active Protocol: Document 12/18/18 09:54 LRN (Rec: 12/18/18 10:42 LRN [id number]) Physical Therapy Assessment Rehab Potential Rehabilitation Potential Good Evaluation Complexity Number of Personal Factors/Comorbidities 1-2 Number of Body Systems Impaired 3 Clinical Presentation at Evaluation Evolving Impairments Impairments Posture,ROM,Strength Goals Four Impairment PF weakness Short Term Goal (STG) PF strength goal to be set after EMG Biofeedback assessment STG Duration 01/18/19 Three Impairment Poor recruitment of muscles Care Home Goal (LTG) Pt will be able to perform a proper PF contraction with a report of lift felt LTG Duration 02/17/19 Two Impairment Poor PF awareness Short Term Goal (STG) Pt will be able to perform a PF contraction in isolation of gluteal, hip AD & Transverse Abdominus. STG Duration 01/18/19 Care Home Goal (LTG) Pt will be able to perform a PF contraction with a strength of at least 1-2/5. LTG Duration 02/17/19 One Impairment Lacks appropriate HEP Care Home Goal (LTG) Pt will be independent in a self care HEP. LTG Duration 03/26/19 Assessment Summary Assessment Pt presents with poor PF awareness with PF strength of 0 in the PF clock. The pt was not able to perform a Quick Flick or Long Hold PF contraction today even with physical digital palpation, and demonstrated use of her gluteal, hip AD's and TA/ abdominal muscles to try and achieve a PF contraction. She has fairly good symmetry of her hip mobility and hip strength except some weakness is noted in her R hip AB/AD's. The pt will benefit from skilled physical therapy to improve her PF awareness, education and training in proper PF contraction and strengthening of her PF, and placement onto a self care HEP . It is expected that the pt' s rehabilitation may need to be extended due to her dealing with other health issues as well. Physical Therapy Plan Frequency and Duration Frequency of Treatment 2x/Week Plan of Care Start Date 12/18/18 Plan of Care End Date 03/26/19 Therapeutic Interventions Therapeutic Interventions Home Exercise Program,Manual Therapy,Neuromuscular Re- education,Patient/Caregiver Education,Self-Care/Home Management,Soft Tissue Mobilization,Therapeutic Activities,Therapeutic Exercises Modalities Biofeedback,Electric Stimulation Next Visit Focus/Plan Next Note Type Treatment Note Next Visit Plan Review of Bladder Diary and Kegel ex's; Initiate training for proper PF contraction in isolation of substitute muscles, training for deep breathing and education in proper voiding when constipated, start of LE roll in/out program, address hip mobility and strength assymetry. EMG biofeedback assessment and goals to be set . Plan of Care Dates Plan of Care Start Date 12/18/18 Plan of Care End Date 03/26/19 Please Sign and Return: I have reviewed this Plan of Care and certify that the skilled therapy services above are required to meet the patient?s needs. Physician Signature Date Printed Name and Credentials Clinical Instructor Signature Printed Name and Credentials
--- NOTE | 2018-12-18 15:30 | PT.OIE ---
Current Diagnoses Stiffness of right hip, not elsewhere classified (12/18/18) Urge incontinence (12/18/18) Cystocele, unspecified (12/18/18) Past Medical History (Last Reviewed 08/11/18 @ 14:58 by Ivory Gamble MD) Anemia (Acute) Back pain (Acute) Degenerative arthritis of right knee (Acute) Depression (Acute) Head trauma (Acute) Headache, migraine (Acute) Thyroid disease (Acute) Traumatic subdural hematoma (Acute ~1995) Past Surgical History (Last Reviewed 08/11/18 @ 14:58 by Ivory Gamble MD) History of hand surgery (Acute ~1970) History of tonsillectomy (Acute) History of total hysterectomy (Acute) Knee joint replacement status (Acute) Visit Care Team Role Provider Type Ezekiel Isidro MD Primary Care Provider Physician Specialty: Internal Medicine Address: [address], [address], [place], [address] Email: NORRIS Hobbs Attending Provider Non-Staff Specialty: Medical Address: [address] [place], [address] Email: Physical Therapy Initial Evaluation PT-OP-A Visit Information Start: 12/18/18 08:11 Freq: Status: Active Protocol: Document 12/18/18 09:54 LRN (Rec: 12/18/18 10:42 LRN [id number]) Out-Patient Physical Therapy Visit Information Visit Information Visit Type Initial Evaluation Visit Start Time 09:54 Visit Stop Time 10:42 Total Visit Minutes 48 Visit Number 1 Number of BEE FARMER Visits 0 Evaluation Information Evaluation Date 12/18/18 Precautions Precautions R TKA Current hx of constipation/ diarrhea Hx of Head Injury PT-OP-B Current Condition Start: 12/18/18 08:11 Freq: Status: Active Protocol: Document 12/18/18 09:54 LRN (Rec: 12/18/18 10:42 LRN [id number]) Current Condition History of Current Condition Onset Date 1.5 yrs ago Current Complaints Urge Incontinence, prolapse History of Current Condition Pt referred to PT for prolapse . States she could feel something between her legs. Daughter who is a nurse told her what her problem was. She has been placed on a fiber diet and she had a barium study done 12/10/18. She is having studies done due to stomach problems within the last 6 months. She reports when constipated, she is worse with a feeling of falling out . She feels her fluid intake is good. Prior Treatments and Tests Fitted and has a pessary by urogynocologist at , 02/2018 . Hasn't used it Was supposed to use Estrodial in tablet form for 2 weeks but couldn't because she didn't have a prescription, but started it 11/24/2018. Hasn't completed usage; therefore has not used pessary. Barium study - 12/10/18. Treatment Goals Patient/Caregiver Goals Pt goal is to improve level of continence and reduce feeling of something between her legs . Referral Goals: Improve use of muscles, control urgency and incontinence. Prior Functional Status Baseline Function- ADL's Independent Baseline Function- Mobility Independent Current Functional Impairments (Reported) Functional Limitations- ADL's Independent. 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 Head Injury on 09/1995 that went undiagnosed until 04/1996 Arthritis PT-OP-C Subjective Start: 12/18/18 08:11 Freq: Status: Active Protocol: Document 12/18/18 09:54 LRN (Rec: 12/18/18 16:34 LRN [id number]) Patient Questionnaires Pelvic Pain and Urgency/Frequency Patient Symptom Scale Pelvic Pain Score 6 PT-OP-I Pelvic Floor Start: 12/18/18 08:11 Freq: Status: Active Protocol: Document 12/18/18 09:54 LRN (Rec: 12/18/18 10:42 LRN [id number]) Pelvic Floor Assessment Urine Pelvic Floor Surgery No Urinary Symptoms Falling Out Feeling/Heavy Other Leakage Causes Only with travelling, can leak Urine Pad Type Panty Liner Bowel Bowel Surgery No Bowel Symptoms Constipation Other Bowel Symptoms Diarrhea since yesterday after an episode of constipation Pelvic Clock Pelvic Clock 12-3 Atrophy Pelvic Clock 3-6 Atrophy Pelvic Clock 6-9 Atrophy Pelvic Clock 9-12 Atrophy Prolapse Uterine Prolapse Grade 2 Perineal Descent Bearing Present Contraction Ability Voluntary Contraction Absent Voluntary Relaxation Absent Manual Muscle Testing Left 0 Manual Muscle Testing Right 0 Manual Muscle Testing Anterior 0 Manual Muscle Testing Posterior 0 Muscle Endurance (Seconds) 0 Number of Quick Contractions In 10 0 Seconds Comments Pelvic Floor Comments PF external visual inspection - atrophy of Left side. PT uses substitute muscles to try and obtain a PF contraction. PT-OP-J Posture/Palpation/Skin Start: 12/18/18 08:11 Freq: Status: Active Protocol: Document 12/18/18 09:54 LRN (Rec: 12/18/18 16:34 LRN [id number]) Posture Evaluation Comments Posture Comments In Standing: Mild kyphosis, elevated R shoulder and scapula, decreased lordosis and sacral tilt, posterior rotated pelvis. PT-OP-K Range of Motion Start: 12/18/18 08:11 Freq: Status: Active Protocol: Document 12/18/18 09:54 LRN (Rec: 12/18/18 18:22 LRN [id number]) Lumbar Spine Range of Motion Lumbar Spine Active Degrees Testing Position Standing Flexion 110 Extension 25 Lateral Flexion Left 10 Lateral Flexion Right 10 Comments Trunk flexion is with 90 deg's hip flexion Trunk extension is with 15 deg 's hip extension Hip Goniometric Range of Motion Hip Right Passive Testing Position Supine Internal Rotation 45 External Rotation 60 Left Passive Testing Position Supine Internal Rotation 45 External Rotation 55 Hip ROM Limitations Hip ROM Limitations Soft Tissue Tightness,Pain Comments Pain on R side from R TKA PT-OP-M Strength Start: 12/18/18 08:11 Freq: Status: Active Protocol: Document 12/18/18 09:54 LRN (Rec: 12/18/18 18:22 LRN [id number]) Hip Strength Hip Manual Muscle Testing Right Abduction 4+ Good+ Adduction 4+ Good+ Comments Generally 5/5 except as indicated above. Left Reason Not Measured WFL Comments Generally 5/5 PT-OP-Q Treatments Start: 12/18/18 08:11 Freq: Status: Active Protocol: Document 12/18/18 09:54 LRN (Rec: 12/18/18 10:42 LRN [id number]) Self-Care/Home Management Treatment Education Patient Education Home Exercise Program Other Education Pt education in Bladder Diary and PF anatomy Activities Self-Care/Home Management Activities Issued & reviewed HEP: Kash PT-OP-T Assessment and Plan Start: 12/18/18 08:11 Freq: Status: Active Protocol: Document 12/18/18 09:54 LRN (Rec: 12/18/18 10:42 HEMANTH [id number]) Physical Therapy Assessment Rehab Potential Rehabilitation Potential Good Evaluation Complexity Number of Personal Factors/Comorbidities 1-2 Number of Body Systems Impaired 3 Clinical Presentation at Evaluation Evolving Impairments Impairments Posture,ROM,Strength Goals Four Impairment PF weakness Short Term Goal (STG) PF strength goal to be set after EMG Biofeedback assessment STG Duration 01/18/19 Three Impairment Poor recruitment of muscles [facility] Goal (LTG) Pt will be able to perform a proper PF contraction with a report of lift felt LTG Duration 02/17/19 Two Impairment Poor PF awareness Short Term Goal (STG) Pt will be able to perform a PF contraction in isolation of gluteal, hip AD & Transverse Abdominus. STG Duration 01/18/19 Dry Cell Sealer Goal (LTG) Pt will be able to perform a PF contraction with a strength of at least 1-2/5. LTG Duration 02/17/19 One Impairment Lacks appropriate HEP [facility] Goal (LTG) Pt will be independent in a self care HEP. LTG Duration 03/26/19 Assessment Summary Assessment Pt presents with poor PF awareness with PF strength of 0 in the PF clock. The pt was not able to perform a Quick Flick or Long Hold PF contraction today even with physical digital palpation, and demonstrated use of her gluteal, hip AD's and TA/ abdominal muscles to try and achieve a PF contraction. She has fairly good symmetry of her hip mobility and hip strength except some weakness is noted in her R hip AB/AD's. The pt will benefit from skilled physical therapy to improve her PF awareness, education and training in proper PF contraction and strengthening of her PF, and placement onto a self care HEP . It is expected that the pt' s rehabilitation may need to be extended due to her dealing with other health issues as well. Physical Therapy Plan Frequency and Duration Frequency of Treatment 2x/Week Plan of Care Start Date 12/18/18 Plan of Care End Date 03/26/19 Therapeutic Interventions Therapeutic Interventions Home Exercise Program,Manual Therapy,Neuromuscular Re- education,Patient/Caregiver Education,Self-Care/Home Management,Soft Tissue Mobilization,Therapeutic Activities,Therapeutic Exercises Modalities Biofeedback,Electric Stimulation Next Visit Focus/Plan Next Note Type Treatment Note Next Visit Plan Review of Bladder Diary and Kegel ex's; Initiate training for proper PF contraction in isolation of substitute muscles, training for deep breathing and education in proper voiding when constipated, start of LE roll in/out program, address hip mobility and strength assymetry. EMG biofeedback assessment and goals to be set .
--- NOTE | 2019-01-19 15:21 | PT.OTN ---
Current Diagnoses Stiffness of right hip, not elsewhere classified (01/19/19) Urge incontinence (01/19/19) Cystocele, unspecified (01/19/19) Physical Therapy Treatment Note PT-OP-A Visit Information Start: 12/18/18 08:11 Freq: Status: Active Protocol: Document 01/19/19 08:22 LRN (Rec: 01/19/19 09:05 LRN [id number]) Out-Patient Physical Therapy Visit Information Visit Information Visit Type Treatment Note Visit Start Time 08:22 Visit Stop Time 09:08 Total Visit Minutes 46 Visit Number 2 Number of TRANSCRIPTION MANAGER Visits 0 Evaluation Information Evaluation Date 12/18/18 Precautions Precautions R TKA Current hx of constipation/ diarrhea Hx of Head Injury PT-OP-B Current Condition Start: 12/18/18 08:11 Freq: Status: Active Protocol: Document 12/18/18 09:54 LRN (Rec: 12/18/18 10:42 LRN [id number]) Current Condition History of Current Condition Onset Date 1.5 yrs ago Current Complaints Urge Incontinence, prolapse History of Current Condition Pt referred to PT for prolapse . States she could feel something between her legs. Daughter who is a nurse told her what her problem was. She has been placed on a fiber diet and she had a barium study done 12/10/18. She is having studies done due to stomach problems within the last 6 months. She reports when constipated, she is worse with a feeling of falling out . She feels her fluid intake is good. Prior Treatments and Tests Fitted and has a pessary by urogynocologist at , 02/2018 . Hasn't used it Was supposed to use Estrodial in tablet form for 2 weeks but couldn't because she didn't have a prescription, but started it 11/24/2018. Hasn't completed usage; therefore has not used pessary. Barium study - 12/10/18. Treatment Goals Patient/Caregiver Goals Pt goal is to improve level of continence and reduce feeling of something between her legs . Referral Goals: Improve use of muscles, control urgency and incontinence. Prior Functional Status Baseline Function- ADL's Independent Baseline Function- Mobility Independent Current Functional Impairments (Reported) Functional Limitations- ADL's Independent. 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 Head Injury on 09/1995 that went undiagnosed until 04/1996 Arthritis PT-OP-C Subjective Start: 12/18/18 08:11 Freq: Status: Active Protocol: Document 01/19/19 08:22 LRN (Rec: 01/19/19 09:05 LRN [id number]) OP-PT Subjective Patient Comments Patient Comments Now on Prilosec that helps the choking and burning down chest. States she has scar tissue causing burning pain. Has ulcer that is healed. PT-OP-I Pelvic Floor Start: 12/18/18 08:11 Freq: Status: Active Protocol: Document 01/19/19 08:22 LRN (Rec: 01/19/19 09:05 LRN [id number]) Pelvic Floor Assessment SEMG (uV) Baseline 1.2 Quick Contraction 8.8 10 Second Contraction 6.9 Recruitment Pattern Poor/Slow Relaxation Fair Holding Poor/Slow Stability of Hold Poor/Slow SEMG Stability of Rest Fair Comments Pelvic Floor Comments Towel needed to hold electrode in place. Legs up on bolster . PT-OP-J Posture/Palpation/Skin Start: 12/18/18 08:11 Freq: Status: Active Protocol: Document 12/18/18 09:54 LRN (Rec: 12/18/18 16:34 LRN [id number]) Posture Evaluation Comments Posture Comments In Standing: Mild kyphosis, elevated R shoulder and scapula, decreased lordosis and sacral tilt, posterior rotated pelvis. PT-OP-K Range of Motion Start: 12/18/18 08:11 Freq: Status: Active Protocol: Document 12/18/18 09:54 LRN (Rec: 12/18/18 18:22 LRN [id number]) Lumbar Spine Range of Motion Lumbar Spine Active Degrees Testing Position Standing Flexion 110 Extension 25 Lateral Flexion Left 10 Lateral Flexion Right 10 Comments Trunk flexion is with 90 deg's hip flexion Trunk extension is with 15 deg 's hip extension Hip Goniometric Range of Motion Hip Right Passive Testing Position Supine Internal Rotation 45 External Rotation 60 Left Passive Testing Position Supine Internal Rotation 45 External Rotation 55 Hip ROM Limitations Hip ROM Limitations Soft Tissue Tightness,Pain Comments Pain on R side from R TKA PT-OP-M Strength Start: 12/18/18 08:11 Freq: Status: Active Protocol: Document 08/23/19 09:54 LRN (Rec: 12/18/18 18:22 LRN [id number]) Hip Strength Hip Manual Muscle Testing Right Abduction 4+ Good+ Adduction 4+ Good+ Comments Generally 5/5 except as indicated above. Left Reason Not Measured WFL Comments Generally 5/5 PT-OP-Q Treatments Start: 12/18/18 08:11 Freq: Status: Active Protocol: Document 01/19/19 08:22 LRN (Rec: 01/19/19 09:05 LRN [id number]) Therapeutic Exercises Supine Exercises PF 10 sec Holds Supine Exercise Name PF 10 sec holds Comments EMG Biofeedback PF Quick Flicks Supine Exercise Name Quick Flicks 2 sec hold/5 sec rest Comments EMG Biofeedback Deep Breathing Supine Exercise Name Deep Breathing review Neuro Re-Education Treatment Other Activities PF awareness training Details EMG biofeedback awareness training Reps/Duration 5' Comments PF contraction with body movement and limbs in different placements. PF neuro re-ed Details PF contraction with vaginal probe E-Stim Reps/Duration 10' Comments Awareness training for proper PF contraction. Extra time taken for intensity setting and achieving pt tolerance level. Self-Care/Home Management Treatment Education Other Education Discussed bladder diary results of urination times. Pt did not fully complete the Bladder diary. Activities Self-Care/Home Management Activities Reviewed Bladder Diary and reissued more handouts for further dairy tracking. PT-OP-T Assessment and Plan Start: 12/18/18 08:11 Freq: Status: Active Protocol: Document 01/19/19 08:22 LRN (Rec: 01/19/19 09:05 LRN [id number]) Physical Therapy Assessment Goals Four Impairment PF weakness Short Term Goal (STG) Isolated PF avg strength of 3. 9uV during a 10 sec long hold. STG Duration 02/17/19 Senior Living Goal (LTG) Isolated PF avg strength of 6. 9uV during a 10 sec long hold. LTG Duration 03/26/19 Three Impairment Poor recruitment of muscles Payroll Lead Goal (LTG) Pt will be able to perform a proper PF contraction with a report of lift felt LTG Duration 02/17/19 Two Impairment Poor PF awareness Short Term Goal (STG) Pt will be able to perform a PF contraction in isolation of gluteal, hip AD & Transverse Abdominus. STG Duration 01/18/19 Senior Living Goal (LTG) Pt will be able to perform a PF contraction with a strength of at least 1-2/5. LTG Duration 02/17/19 One Impairment Lacks appropriate HEP Senior Living Goal (LTG) Pt will be independent in a self care HEP. LTG Duration 03/26/19 Assessment Summary Assessment Obvious use of substitute muscles for the pt to achieve a PF contraction. She uses gluts, abdominals and hip AD's . She is not able to isolate a PF contraction. When patricio she pushes out the electrode; therefore showing poor coordination of a PF contraction. Pt will need much training to eliminate the use of a towel roll to maintain electrode in vaginal canal. Physical Therapy Plan Frequency and Duration Frequency of Treatment 2x/Week Plan of Care Start Date 12/18/18 Plan of Care End Date 03/26/19 Next Visit Focus/Plan Next Note Type Treatment Note Next Visit Plan Review of Bladder Diary; progress training for proper PF contraction in isolation of substitute muscles, review deep breathing and education in proper voiding when constipated, start of LE roll in/out program, address hip mobility and strength assymetry.
--- NOTE | 2019-01-22 14:44 | PT.OTN ---
Current Diagnoses Stiffness of right hip, not elsewhere classified (01/22/19) Urge incontinence (01/22/19) Cystocele, unspecified (01/22/19) Physical Therapy Treatment Note PT-OP-A Visit Information Start: 12/18/18 08:11 Freq: Status: Active Protocol: Document 01/22/19 13:41 LRN (Rec: 01/22/19 14:38 LRN [id number]) Out-Patient Physical Therapy Visit Information Visit Information Visit Type Treatment Note Visit Start Time 13:41 Visit Stop Time 14:28 Total Visit Minutes 47 Visit Number 3 Number of UNDERWATER ROBOTICIST Visits 0 Evaluation Information Evaluation Date 12/18/18 PT-OP-B Current Condition Start: 12/18/18 08:11 Freq: Status: Active Protocol: Document 12/18/18 09:54 LRN (Rec: 12/18/18 10:42 LRN [id number]) Current Condition History of Current Condition Onset Date 1.5 yrs ago Current Complaints Urge Incontinence, prolapse History of Current Condition Pt referred to PT for prolapse . States she could feel something between her legs. Daughter who is a nurse told her what her problem was. She has been placed on a fiber diet and she had a barium study done 12/10/18. She is having studies done due to stomach problems within the last 6 months. She reports when constipated, she is worse with a feeling of falling out . She feels her fluid intake is good. Prior Treatments and Tests Fitted and has a pessary by urogynocologist at , 02/2018 . Hasn't used it Was supposed to use Estrodial in tablet form for 2 weeks but couldn't because she didn't have a prescription, but started it 11/24/2018. Hasn't completed usage; therefore has not used pessary. Barium study - 12/10/18. Treatment Goals Patient/Caregiver Goals Pt goal is to improve level of continence and reduce feeling of something between her legs . Referral Goals: Improve use of muscles, control urgency and incontinence. Prior Functional Status Baseline Function- ADL's Independent Baseline Function- Mobility Independent Current Functional Impairments (Reported) Functional Limitations- ADL's Independent. 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 Head Injury on 09/1995 that went undiagnosed until 04/1996 Arthritis PT-OP-C Subjective Start: 12/18/18 08:11 Freq: Status: Active Protocol: Document 01/22/19 13:41 LRN (Rec: 01/22/19 14:38 LRN [id number]) OP-PT Subjective Patient Comments Patient Comments States the last treatment helped a lot and she now thinks she is able to contract by pulling up and in. PT-OP-I Pelvic Floor Start: 12/18/18 08:11 Freq: Status: Active Protocol: Document 01/22/19 13:41 LRN (Rec: 01/22/19 14:38 LRN [id number]) Pelvic Floor Assessment SEMG (uV) Baseline 2.1 Quick Contraction 5.5 10 Second Contraction 6 Recruitment Pattern Fair Relaxation Fair Holding Poor/Slow Stability of Hold Poor/Slow SEMG Stability of Rest Fair Comments Pelvic Floor Comments Pt contractions are with PF mostly isolated. Long Holds Avg Max 6.0uV, Avg Rest 3.4 uV PT-OP-J Posture/Palpation/Skin Start: 12/18/18 08:11 Freq: Status: Active Protocol: Document 12/18/18 09:54 LRN (Rec: 12/18/18 16:34 LRN [id number]) Posture Evaluation Comments Posture Comments In Standing: Mild kyphosis, elevated R shoulder and scapula, decreased lordosis and sacral tilt, posterior rotated pelvis. PT-OP-K Range of Motion Start: 12/18/18 08:11 Freq: Status: Active Protocol: Document 12/18/18 09:54 LRN (Rec: 12/18/18 18:22 LRN [id number]) Lumbar Spine Range of Motion Lumbar Spine Active Degrees Testing Position Standing Flexion 110 Extension 25 Lateral Flexion Left 10 Lateral Flexion Right 10 Comments Trunk flexion is with 90 deg's hip flexion Trunk extension is with 15 deg 's hip extension Hip Goniometric Range of Motion Hip Right Passive Testing Position Supine Internal Rotation 45 External Rotation 60 Left Passive Testing Position Supine Internal Rotation 45 External Rotation 55 Hip ROM Limitations Hip ROM Limitations Soft Tissue Tightness,Pain Comments Pain on R side from R TKA PT-OP-M Strength Start: 12/18/18 08:11 Freq: Status: Active Protocol: Document 12/18/18 09:54 LRN (Rec: 12/18/18 18:22 LRN [id number]) Hip Strength Hip Manual Muscle Testing Right Abduction 4+ Good+ Adduction 4+ Good+ Comments Generally 5/5 except as indicated above. Left Reason Not Measured WFL Comments Generally 5/5 PT-OP-Q Treatments Start: 12/18/18 08:11 Freq: Status: Active Protocol: Document 01/22/19 13:41 LRN (Rec: 01/22/19 14:38 LRN [id number]) Therapeutic Exercises Supine Exercises L BKFO w/PF Supine Exercise Name L BKFO w/PF>< Side left Comments I/S in how to perform PF 10 sec Holds Supine Exercise Name PF 10 sec holds Reps/Minutes 8 Comments Checking PF strength & EMG Biofeedback PF Quick Flicks Supine Exercise Name Quick Flicks 2 sec hold/5 sec rest Comments EMG Biofeedback Neuro Re-Education Treatment Other Activities PF awareness training Details EMG biofeedback awareness training Reps/Duration 15' Comments Long holds, Quick Flicks for PF isolation. PF neuro re-ed Details PF contraction with vaginal probe E-Stim Reps/Duration 10' Comments Awareness training for proper PF contraction. Extra time taken for intensity setting and achieving pt tolerance level. PT-OP-R Modalities Start: 12/18/18 08:11 Freq: Status: Active Protocol: Document 01/22/19 13:41 LRN (Rec: 01/22/19 14:42 LRN [id number]) Electric Stimulation Electric Stimulation Other Body Location Vaginal Duration (Minutes) 8 Intensity 27 Frequency 50 Patient Position Hooklying Comments Pathway E-Stim used as neuromuscular re-education for PF awareness training and strengthening. PT-OP-T Assessment and Plan Start: 12/18/18 08:11 Freq: Status: Active Protocol: Document 01/22/19 13:41 LRN (Rec: 01/22/19 14:38 LRN [id number]) Physical Therapy Assessment Assessment Summary Assessment Pt did not have her bladder diary. Pt is able to perform PF contraction w/min substitute ms contraction. She is able to perform a proper type PF contraction with lift noted posteriorly and no pusing out of organs. Superficial ms contraction not noted. Physical Therapy Plan Frequency and Duration Frequency of Treatment 1x/Week Plan of Care Start Date 12/18/18 Plan of Care End Date 03/26/19 Next Visit Focus/Plan Next Note Type Treatment Note Next Visit Plan Review of Bladder Diary; progress training for stronger anterior and equal sidewall proper PF contraction in isolation of substitute muscles. Review deep breathing. Educate in proper voiding when constipated, start of LE roll in/out program, address hip mobility and strength assymetry.
--- NOTE | 2019-02-15 14:19 | PT.OTN ---
Current Diagnoses Stiffness of right hip, not elsewhere classified (02/15/19) Urge incontinence (02/15/19) Cystocele, unspecified (02/15/19) Physical Therapy Treatment Note PT-OP-A Visit Information Start: 12/18/18 08:11 Freq: Status: Active Protocol: Document 02/15/19 10:34 LRN (Rec: 02/15/19 11:20 LRN [id number]) Out-Patient Physical Therapy Visit Information Visit Information Visit Type Treatment Note Visit Start Time 10:34 Visit Stop Time 11:20 Total Visit Minutes 46 Visit Number 4 Number of DRYWALL METAL STUD WORKER Visits 0 Evaluation Information Evaluation Date 12/18/18 Precautions Precautions R TKA Current hx of constipation/ diarrhea Hx of Head Injury PT-OP-B Current Condition Start: 12/18/18 08:11 Freq: Status: Active Protocol: Document 12/18/18 09:54 LRN (Rec: 12/18/18 10:42 LRN [id number]) Current Condition History of Current Condition Onset Date 1.5 yrs ago Current Complaints Urge Incontinence, prolapse History of Current Condition Pt referred to PT for prolapse . States she could feel something between her legs. Daughter who is a nurse told her what her problem was. She has been placed on a fiber diet and she had a barium study done 12/10/18. She is having studies done due to stomach problems within the last 6 months. She reports when constipated, she is worse with a feeling of falling out . She feels her fluid intake is good. Prior Treatments and Tests Fitted and has a pessary by urogynocologist at , 02/2018 . Hasn't used it Was supposed to use Estrodial in tablet form for 2 weeks but couldn't because she didn't have a prescription, but started it 11/24/2018. Hasn't completed usage; therefore has not used pessary. Barium study - 12/10/18. Treatment Goals Patient/Caregiver Goals Pt goal is to improve level of continence and reduce feeling of something between her legs . Referral Goals: Improve use of muscles, control urgency and incontinence. Prior Functional Status Baseline Function- ADL's Independent Baseline Function- Mobility Independent Current Functional Impairments (Reported) Functional Limitations- ADL's Independent. 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 Head Injury on 09/1995 that went undiagnosed until 04/1996 Arthritis PT-OP-C Subjective Start: 12/18/18 08:11 Freq: Status: Active Protocol: Document 02/15/19 10:34 LRN (Rec: 02/15/19 11:20 LRN [id number]) OP-PT Subjective Patient Comments Patient Comments Back went out, having sciatic pain, 1-1/2 weeks ago. States she put a lift in her left shoe to see if it would help. PT-OP-I Pelvic Floor Start: 12/18/18 08:11 Freq: Status: Active Protocol: Document 01/22/19 13:41 LRN (Rec: 01/22/19 14:38 LRN [id number]) Pelvic Floor Assessment SEMG (uV) Baseline 2.1 Quick Contraction 5.5 10 Second Contraction 6 Recruitment Pattern Fair Relaxation Fair Holding Poor/Slow Stability of Hold Poor/Slow SEMG Stability of Rest Fair Comments Pelvic Floor Comments Pt contractions are with PF mostly isolated. Long Holds Avg Max 6.0uV, Avg Rest 3.4 uV PT-OP-J Posture/Palpation/Skin Start: 12/18/18 08:11 Freq: Status: Active Protocol: Document 12/18/18 09:54 LRN (Rec: 12/18/18 16:34 LRN [id number]) Posture Evaluation Comments Posture Comments In Standing: Mild kyphosis, elevated R shoulder and scapula, decreased lordosis and sacral tilt, posterior rotated pelvis. PT-OP-K Range of Motion Start: 12/18/18 08:11 Freq: Status: Active Protocol: Document 12/18/18 09:54 LRN (Rec: 12/18/18 18:22 LRN [id number]) Lumbar Spine Range of Motion Lumbar Spine Active Degrees Testing Position Standing Flexion 110 Extension 25 Lateral Flexion Left 10 Lateral Flexion Right 10 Comments Trunk flexion is with 90 deg's hip flexion Trunk extension is with 15 deg 's hip extension Hip Goniometric Range of Motion Hip Right Passive Testing Position Supine Internal Rotation 45 External Rotation 60 Left Passive Testing Position Supine Internal Rotation 45 External Rotation 55 Hip ROM Limitations Hip ROM Limitations Soft Tissue Tightness,Pain Comments Pain on R side from R TKA PT-OP-M Strength Start: 12/18/18 08:11 Freq: Status: Active Protocol: Document 12/18/18 09:54 LRN (Rec: 12/18/18 18:22 LRN [id number]) Hip Strength Hip Manual Muscle Testing Right Abduction 4+ Good+ Adduction 4+ Good+ Comments Generally 5/5 except as indicated above. Left Reason Not Measured WFL Comments Generally 5/5 PT-OP-Q Treatments Start: 12/18/18 08:11 Freq: Status: Active Protocol: Document 02/15/19 10:34 LRN (Rec: 02/15/19 11:20 LRN [id number]) Therapeutic Exercises Supine Exercises Hamstring stretch Supine Exercise Name PSLR Side bilateral Comments PROM taken L BKFO w/PF Supine Exercise Name L BKFO w/PF>< Side left Reps/Minutes 15x Comments I/S in how to perform PF 10 sec Holds Supine Exercise Name 10 sec hold without accessory muscles Equipment Used Ball Reps/Minutes 5' PF Quick Flicks Supine Exercise Name Quick Flicks without accessory muscles Resistance Ball squeeze and without ball squeeze Equipment Used Ball Comments Pt has difficulty with coordination of contraction with relaxation Deep Breathing Supine Exercise Name Deep Breathing review Reps/Minutes 4' Manual Therapy Treatment Manual Techniques SIJ assessment Type Bridge followed by leg length check Body Location Supine Body Position Hooklying Reps/Duration 3x Comments Pt level x 3. Neuro Re-Education Treatment Other Activities PF awareness training Details EMG biofeedback awareness training Reps/Duration 15' Comments Long holds, Quick Flicks for PF isolation. PT-OP-R Modalities Start: 12/18/18 08:11 Freq: Status: Active Protocol: Document 02/15/19 10:34 LRN (Rec: 02/15/19 11:20 LRN [id number]) Electric Stimulation Electric Stimulation Other Body Location Vaginal Duration (Minutes) 8 Intensity 27 Frequency 50 Patient Position Hooklying Comments Pathway E-Stim used as neuromuscular re-education for PF awareness training and strengthening. PT-OP-T Assessment and Plan Start: 12/18/18 08:11 Freq: Status: Active Protocol: Document 02/15/19 10:34 LRN (Rec: 02/15/19 11:20 LRN [id number]) Physical Therapy Assessment Goals Four Impairment PF weakness Short Term Goal (STG) Isolated PF avg strength of 3. 9uV during a 10 sec long hold. STG Duration 02/17/19 Correction Goal (LTG) Isolated PF avg strength of 6. 9uV during a 10 sec long hold. LTG Duration 03/26/19 Three Impairment Poor recruitment of muscles Correction Goal (LTG) Pt will be able to perform a proper PF contraction with a report of lift felt LTG Duration 02/17/19 Two Impairment Poor PF awareness Short Term Goal (STG) Pt will be able to perform a PF contraction in isolation of gluteal, hip AD & Transverse Abdominus. STG Duration 01/18/19 Block Trimmer Goal (LTG) Pt will be able to perform a PF contraction with a strength of at least 1-2/5. LTG Duration 02/17/19 One Impairment Lacks appropriate HEP Correction Goal (LTG) Pt will be independent in a self care HEP. LTG Duration 03/26/19 Assessment Summary Assessment Pt did not bring in a bladder diary. Pt has difficulty coordinating breathing with PF contraction and use of hip AD for lateral wall strengthening. Physical Therapy Plan Frequency and Duration Frequency of Treatment 1x/Week Plan of Care Start Date 12/18/18 Plan of Care End Date 03/26/19 Next Visit Focus/Plan Next Note Type Treatment Note Next Visit Plan Review of Bladder Diary; progress training for stronger anterior and equal sidewall proper PF contraction in isolation of substitute muscles. Deep breathing, educate in proper voiding when constipated, start of LE roll in/out program, address hip mobility and strength asymmetry.
--- NOTE | 2019-03-23 17:18 | PT.OTN ---
Current Diagnoses Stiffness of right hip, not elsewhere classified (03/23/19) Urge incontinence (03/23/19) Cystocele, unspecified (03/23/19) Physical Therapy Treatment Note PT-OP-A Visit Information Start: 12/18/18 08:11 Freq: Status: Active Protocol: Document 03/23/19 08:18 LRN (Rec: 03/23/19 17:18 LRN [id number]) Out-Patient Physical Therapy Visit Information Visit Information Visit Type Discharge Summary Visit Start Time 08:18 Visit Stop Time 09:01 Total Visit Minutes 43 Visit Number 5 Number of EMERGENCY PREPAREDNESS COORDINATOR Visits 0 Evaluation Information Evaluation Date 12/18/18 Precautions Precautions R TKA Current hx of constipation/ diarrhea Hx of Head Injury PT-OP-B Current Condition Start: 12/18/18 08:11 Freq: Status: Active Protocol: Document 12/18/18 09:54 LRN (Rec: 12/18/18 10:42 LRN [id number]) Current Condition History of Current Condition Onset Date 1.5 yrs ago Current Complaints Urge Incontinence, prolapse History of Current Condition Pt referred to PT for prolapse . States she could feel something between her legs. Daughter who is a nurse told her what her problem was. She has been placed on a fiber diet and she had a barium study done 12/10/18. She is having studies done due to stomach problems within the last 6 months. She reports when constipated, she is worse with a feeling of falling out . She feels her fluid intake is good. Prior Treatments and Tests Fitted and has a pessary by urogynocologist at , 02/2018 . Hasn't used it Was supposed to use Estrodial in tablet form for 2 weeks but couldn't because she didn't have a prescription, but started it 11/24/2018. Hasn't completed usage; therefore has not used pessary. Barium study - 12/10/18. Treatment Goals Patient/Caregiver Goals Pt goal is to improve level of continence and reduce feeling of something between her legs . Referral Goals: Improve use of muscles, control urgency and incontinence. Prior Functional Status Baseline Function- ADL's Independent Baseline Function- Mobility Independent Current Functional Impairments (Reported) Functional Limitations- ADL's Independent. 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 Head Injury on 09/1995 that went undiagnosed until 04/1996 Arthritis PT-OP-C Subjective Start: 12/18/18 08:11 Freq: Status: Active Protocol: Document 03/23/19 08:18 LRN (Rec: 03/23/19 17:18 LRN [id number]) OP-PT Subjective Patient Comments Patient Comments Pt states she has a lot going on with spousal surgery and her other health issues. Her next therapy session conflicts with her MD appt therefore she is cancelling it and suggests/requests stopping therapy until the new year when her life settles down. Received a cortisone injection in the LB eight days ago with good results. PT-OP-I Pelvic Floor Start: 12/18/18 08:11 Freq: Status: Active Protocol: Document 03/23/19 08:18 LRN (Rec: 03/23/19 17:18 LRN [id number]) Pelvic Floor Assessment SEMG (uV) Baseline 2.5 Quick Contraction 8.9 10 Second Contraction 6.7 Recruitment Pattern Good Relaxation Fair Holding Fair Stability of Hold Fair SEMG Stability of Rest Fair Contraction Ability Manual Muscle Testing Left 3 Manual Muscle Testing Right 2 Manual Muscle Testing Anterior 3 Manual Muscle Testing Posterior 3 Muscle Endurance (Seconds) 7 Comments Pelvic Floor Comments Pt able to perfrom a PF contaction in isolation of accessory muscles. Long Hold Avg Rest 3.7 uV. Max contraction 16 uV. Quick Flick Avg Rest is 4.7 uV PT-OP-J Posture/Palpation/Skin Start: 12/18/18 08:11 Freq: Status: Active Protocol: Document 12/18/18 09:54 LRN (Rec: 12/18/18 16:34 LRN [id number]) Posture Evaluation Comments Posture Comments In Standing: Mild kyphosis, elevated R shoulder and scapula, decreased lordosis and sacral tilt, posterior rotated pelvis. PT-OP-K Range of Motion Start: 12/18/18 08:11 Freq: Status: Active Protocol: Document 12/18/18 09:54 LRN (Rec: 12/18/18 18:22 LRN [id number]) Lumbar Spine Range of Motion Lumbar Spine Active Degrees Testing Position Standing Flexion 110 Extension 25 Lateral Flexion Left 10 Lateral Flexion Right 10 Comments Trunk flexion is with 90 deg's hip flexion Trunk extension is with 15 deg 's hip extension Hip Goniometric Range of Motion Hip Right Passive Testing Position Supine Internal Rotation 45 External Rotation 60 Left Passive Testing Position Supine Internal Rotation 45 External Rotation 55 Hip ROM Limitations Hip ROM Limitations Soft Tissue Tightness,Pain Comments Pain on R side from R TKA PT-OP-M Strength Start: 12/18/18 08:11 Freq: Status: Active Protocol: Document 12/18/18 09:54 LRN (Rec: 12/18/18 18:22 LRN [id number]) Hip Strength Hip Manual Muscle Testing Right Abduction 4+ Good+ Adduction 4+ Good+ Comments Generally 5/5 except as indicated above. Left Reason Not Measured WFL Comments Generally 5/5 PT-OP-Q Treatments Start: 12/18/18 08:11 Freq: Status: Active Protocol: Document 03/23/19 08:18 LRN (Rec: 03/23/19 17:18 LRN [id number]) Therapeutic Exercises Supine Exercises LE Roll in/out Supine Exercise Name LE Roll in/out Side bilateral Resistance T-Band, Ball PF 10 sec Holds Supine Exercise Name 10 sec hold without accessory muscles PF Quick Flicks Supine Exercise Name Quick Flicks without accessory muscles Deep Breathing Supine Exercise Name Deep Breathing review Reps/Minutes 2' Self-Care/Home Management Treatment Education Patient Education Home Exercise Program Activities Self-Care/Home Management Activities Issued & reviewed HEP: LE Roll in/outs. Discussed progression to bridge position for BKFO and ball squeeze with PF contraction. PT-OP-R Modalities Start: 12/18/18 08:11 Freq: Status: Active Protocol: Document 02/15/19 10:34 LRN (Rec: 02/15/19 11:20 LRN [id number]) Electric Stimulation Electric Stimulation Other Body Location Vaginal Duration (Minutes) 8 Intensity 27 Frequency 50 Patient Position Hooklying Comments Pathway E-Stim used as neuromuscular re-education for PF awareness training and strengthening. PT-OP-T Assessment and Plan Start: 12/18/18 08:11 Freq: Status: Active Protocol: Document 03/23/19 08:18 LRN (Rec: 03/23/19 17:18 LRN [id number]) Physical Therapy Assessment Goals Four Impairment PF weakness Short Term Goal (STG) Isolated PF avg strength of 3. 9uV during a 10 sec long hold. STG Duration 02/17/19 (01/22/19: GOAL MET) Mcc Goal (LTG) Isolated PF avg strength of 6. 9uV during a 10 sec long hold. LTG Duration 03/26/19 (03/23/19: (: Strength is 6.7uV) Three Impairment Poor recruitment of muscles Mcc Goal (LTG) Pt will be able to perform a proper PF contraction with a report of lift felt LTG Duration 02/17/19 (03/23/19: GOAL MET) Two Impairment Poor PF awareness Short Term Goal (STG) Pt will be able to perform a PF contraction in isolation of gluteal, hip AD & Transverse Abdominus. STG Duration 01/18/19 (03/23/19: GOAL MET) Metal Furrer Goal (LTG) Pt will be able to perform a PF contraction with a strength of at least 1-2/5. LTG Duration 02/17/19 (03/23/19: GOAL MET ) One Impairment Lacks appropriate HEP Mcc Goal (LTG) Pt will be independent in a self care HEP. LTG Duration 03/26/19 (03/23/19: GOAL PARTIALLY MET. HEP initiated. ) Assessment Summary Assessment Pt has been seen for 3 treatment visits over the past 2 months. She has been able to improve her PF strength and ability to isolate a PF contraction from her accessory muscles. She has weakness of the PF Clock at 9 O'Clock and demonstrates mild ability to draw inward while performing a PF contraction. She no longer reports a feeling of falling out. She would like to resume her PF rehab after the new year when she hopes spousal assist will be less and improvement in LBP will allow her to focus more on her PF rehabilitation. I am in agreement with the patient. Physical Therapy Plan Frequency and Duration Plan of Care Start Date 12/18/18 Plan of Care End Date 03/26/19 Discharge Physical Therapy Discharge Reasons Patient Request Discharge Comments Recommend the pt return for PF rehabilitation if she continues to have symptoms of urinary leakage when she is able to focus and be more consistent with her PT program and attendance. Thank you for your referral.
== END 2019-03-24 08:35 | disposition home or self-care (01) ==
LOC: PHYS 08:15
PROVIDERS: PCP Internal Medicine; Visit Provider Nurse Practitioner Family
DX: N39.41 Urge incontinence (principal); N81.10 Cystocele, unspecified; M25.651 Stiffness of right hip, not elsewhere classified
CPT/HCPCS: 97110; 97112; 97162; 97535

== ENCOUNTER 2020-03-17 20:17 | Emergency (ER) | payer MEDICARE, SELFPAY ==
[2018-09-07 16:46] VITALS: BMI 26.6
[2020-03-17 20:20] VITALS: BP 195/94; PULSE 72; RESP 18; O2SAT 98
--- NOTE | 2020-03-17 21:21 | DI.CT.S_ITS ---
PROCEDURE: CT HEAD/BRAIN WO CON INDICATIONS: fall, head injury, confused TECHNIQUE: Noncontrast 4.5 mm thick angled axial sections acquired from the foramen magnum to the vertex, with coronal and sagittal reformats. For radiation dose reduction, the following was used: automated exposure control, adjustment of mA and/or kV according to patient size. COMPARISON: None. FINDINGS: Image quality: Excellent. CSF spaces: Basal cisterns are patent. No extra-axial fluid collections. Ventricles are normal in size and shape. Brain: No midline shift. No intracranial masses or hemorrhage. Tobar-white matter interface is normal. Skull and face: Left frontal rose holes noted. Calvarium and visualized facial bones are otherwise intact, without suspicious lesions. Sinuses: Visualized sinuses and mastoids are clear. IMPRESSION: No acute intracranial finding. No significant change from preliminary report. Dictated by: Bill Contreras M.D. on 03/18/2020 at 7:21 Approved by: Bill Contreras M.D. on 03/18/2020 at 7:23
--- NOTE | 2020-03-17 21:21 | DI.CT.S_ITS ---
PROCEDURE: CT FACIAL BONES WO CON INDICATIONS: facial injury after fall TECHNIQUE: Noncontrast 2.5 mm thick axial images acquired from the mandible through the frontal sinuses, with coronal and sagittal reformatting. For radiation dose reduction, the following was used: automated exposure control, adjustment of mA and/or kV according to patient size. COMPARISON: None. FINDINGS: Image quality: Excellent. Bones and teeth: Orbital perea are intact. Sinus perea show no fracture or deformity. Nasal bones and septum are intact. Visualized portions of the mandible demonstrate no fractures or subluxation. Zygomatic arches are intact. Pterygoid plates are intact. Visualized portions of the skull base and auditory canals are intact. Sinuses: Paranasal sinuses are aerated, without fluid levels, mucosal thickening, or mucoceles. Mastoid air cells are aerated. Soft tissues: Suspected soft tissue laceration with edema in the nasal tip. IMPRESSION: No acute fracture. Soft tissue swelling about the nasal tip. Dictated by: Bill Contreras M.D. on 03/18/2020 at 7:23 Approved by: Bill Contreras M.D. on 03/18/2020 at 7:24
[2020-03-17 22:07] VITALS: BP 164/79; PULSE 62; O2SAT 100
[2020-03-17] MEDS: CYCLOBENZAPRINE 10 MG PREPACK 1 BOTTLE MISC (23:47)
--- NOTE | 2020-03-18 06:38 | ED.FALL ---
HPI - Fall General Chief Complaint: Fall Stated Complaint: FALL ACTING STRANGE DIZZY NAUSEA Time Seen by Provider: 03/17/20 20:20 Source: patient and family Mode of arrival: Wheelchair Limitations: no limitations History of Present Illness HPI Narrative: 69-year-old female nonsmoker with a history of a subdural hematoma presents with her daughter and a chief complaint of an accidental fall with head and face injury. She states that she was running into her house when she tripped over a box and fell forward landing on her face. She suffered injuries to her nose and head and states she probably had a brief loss of consciousness. She has had some nausea and feels a bit dizzy but is otherwise well. She does have some nose pain and states that it was bleeding but now has dried clots. She can breathe through both nostrils. She states that she thinks she might have chipped a tooth. She denies any other symptoms. She denies prodromal symptoms such as chest pain or shortness of breath. MD complaint: fall Onset (ago): minute(s) Fall witnessed: yes, by family Place fall occurred: home Loss of consciousness: yes Length of LOC: second(s) Prolonged down time: no Symptoms prior to fall: none Context: tripped/slipped Location of injury: head and face Quality: aching Associated symptoms (after fall): headache Related Data Home Medications Medication Instructions Recorded Confirmed bupropion HCl [Wellbutrin XL] 300 mg PO DAILY 03/17/18 08/11/18 dextroamphetamine-amphetamine 60 mg PO DAILY 03/17/18 08/11/18 [Adderall] ibuprofen 800 mg PO BID PRN 03/17/18 03/17/18 lamotrigine [Lamictal] 200 mg PO DAILY 03/17/18 08/11/18 levothyroxine [Levoxyl] 100 mcg PO DAILY 03/17/18 08/11/18 mupirocin [Centany AT] 1 applic TOPICAL BID 03/17/18 03/17/18 simvastatin 20 mg PO BEDTIME 03/17/18 08/11/18 tramadol 50 - 100 mg PO BID 03/17/18 03/25/18 biotin PO 08/11/18 08/11/18 cholecalciferol (vitamin D3) PO 08/11/18 08/11/18 Previous Rx's Medication Instructions Recorded acetaminophen 975 mg PO TID #30 tab 03/26/18 aspirin 81 mg PO BID #60 tab 03/26/18 meloxicam 15 mg PO BID #60 tab 03/26/18 oxycodone 10 mg PO Q3HR PRN #30 tab 03/26/18 cyclobenzaprine 10 mg PO TID PRN #14 tab 03/17/20 hydrocodone-acetaminophen 1 tab PO Q4-6H PRN #10 tab 03/17/20 ondansetron 4 mg PO TID-QID PRN #10 tab 03/17/20 Allergies Allergy/AdvReac Type Severity Reaction Status Date / Time No Known Drug Allergies Allergy Verified 08/11/18 14:35 Review of Systems Constitutional Constitutional: Denies chills, Denies fatigue, Denies fever(s), Denies frequent falls, Reports headache(s), Denies lethargy and Denies weakness Eyes Eyes: Denies change in vision, Denies eye discharge, Denies irritation and Denies loss of vision ENT Ears, Nose, Mouth, and Throat: Denies change in voice, Denies dizziness, Reports headache(s), Reports epistaxis, Denies neck pain, Denies sore throat and Denies throat swelling Cardiovascular Cardiovascular: Denies chest pain, Denies irregular heart rhythm, Denies lightheadedness, Denies palpitations, Denies dyspnea, Denies dyspnea on exertion and Denies orthopnea Respiratory Respiratory: Denies cough, Denies dyspnea, Denies dyspnea on exertion and Denies wheezing Gastrointestinal Gastrointestinal: Denies abdominal pain, Denies change in bowel habits, Denies diarrhea, Denies nausea and Denies vomiting Musculoskeletal Musculoskeletal: Denies neck pain and Denies numbness Integumentary/Breasts Skin/Breast: Denies pruritus, Denies erythema, Denies rash and Denies wounds Neurologic Neurologic: Denies behavioral changes, Denies confusion, Denies dizziness, Denies frequent falls, Reports headache(s), Denies loss of vision, Denies numbness and Denies weakness Psychiatric Psychiatric: Denies anxiety, Denies behavioral changes, Denies confusion, Denies depression, Denies homicidal ideation and Denies suicidal ideation Endocrine Endocrine: Denies fatigue, Denies flushing and Denies palpitations Hematologic/Lymphatic Hematologic/Lymphatic: Denies easy bruising Allergic/Immunologic Allergic/Immunologic: Denies urticaria, Denies throat swelling and Denies wheezing Patient History Medical History Anemia Back pain Degenerative arthritis of right knee Depression Head trauma Headache, migraine Thyroid disease Traumatic subdural hematoma (~1995) Surgical History History of hand surgery (~1970) History of tonsillectomy History of total hysterectomy Knee joint replacement status Family History Grandmother Heart disease Social History household members: spouse and children Smoking Status: Never smoker alcohol intake: current substance use type: does not use Smoking Status: Never smoker alcohol intake frequency: a few times a month Substance Use Type: does not use Exam Narrative Exam Narrative: GENERAL: [69] year old patient appears stated age. Well-nourished, well-developed patient, in mild distress. GCS 15 HEAD: Atraumatic. Normocephalic. No abrasion, laceration or evidence of depressed skull fracture EYES: Pupils equal round and reactive. No hyphema Extraocular motions intact. No scleral icterus. No injection or drainage. ENT: Bridge of nose with swelling and tenderness to palpation, abrasion but no laceration. Fresh clots in bilateral nares with no active bleeding or evidence of nasal septal hematoma. Throat without erythema, tonsillar hypertrophy or exudate. Airway patent. He no hemotympanum NECK: Trachea midline. No midline tenderness, step-offs or crepitance. There is some mild tenderness to palpation of the paraspinal musculature on the right side of her neck CARDIOVASCULAR: Regular rate and rhythm without murmurs, gallops, or rubs. RESPIRATORY: Clear to auscultation. Breath sounds equal bilaterally. No wheezes, rales, or rhonchi. GASTROINTESTINAL: Abdomen soft, non-tender, nondistended. EXTREMITIES: No edema or joint tenderness. BACK: Nontender without deformity or crepitance. No flank tenderness. NEURO: AOx3. SKIN: No rash or erythema of visible areas Initial Vital Signs Initial Vital Signs: Vital Signs Pulse Rate 72 03/17/20 20:20 Respiratory Rate 18 03/17/20 20:20 Blood Pressure 195/94 H 03/17/20 20:20 Pulse Oximetry 98 03/17/20 20:20 Course Orders Ordered: Discontinued Medications Cyclobenzaprine HCl (Cyclobenzaprine 10 Mg Prepack) 1 bottle [facility] [place] [facility] [facility] Stop: 03/17/20 23:38 Last Admin: 03/17/20 23:47 Dose: 1 bottle Documented by: CAROL MDM - Fall Lab Data Labs: Urine Dip Bedside Urine Glucose Negative Bedside Urine Bilirubin - Negative Bedside Urine Ketone - Negative Urine Specific Byron 1.030 Bedside Urine Occult Blood - Negative Bedside Urine pH 6.0 Bedside Urine Protein - Negative Bedside Urine Urobilinogen - Negative Bedside Urine Nitrite - Negative Bedside Urine Leukocytes - Negative Esterase Imaging Data CT scan - head: Radiologist's Impression: No bleed CT Facial Bones: Radiologist's Impression: Mild deformity to tip of nasal bone [facility] [place] Narrative Medical decision making narrative: Patient able to ambulate to the department without any significant difficulty. She is awake, alert and oriented. GCS 15. Demonstrates full capacity. Return precautions given, questions answered to her apparent satisfaction Discharge Plan Departure Patient Disposition: Home Clinical Impression: Closed fracture nasal bone Concussion Qualifiers: Encounter type: initial encounter Loss of consciousness presence/duration: with LOC of 30 min or less Qualified Code(s): S06.0X1A - Concussion with loss of consciousness of 30 minutes or less, initial encounter Contusion of face Qualifiers: Encounter type: initial encounter Qualified Code(s): S00.83XA - Contusion of other part of head, initial encounter Instructions: How to Prevent Falls Activity Restrictions/Additional Instructions: *You have been diagnosed with [fall with concussion and probable nasal bone fracture] *What to do: *Take medications as directed *Follow up with your primary care provider in 2-3 days, call for an appointment. Let them know you were seen in the Emergency Department and that we ask that you be seen in follow up *Return to ER if you should have any new, worsening or concerning symptoms You have a slight concussion and will likely have a mild headache and some nausea for a few days. Avoiding highly stimulating activities and even TV or computers may be helpful in minimizing your symptoms. Avoid activities that will put you at risk for another head injury for at least a week. You can take tylenol or motrin for headache or the prescription provided for nausea/vomiting. Return for worsening or persistent symptoms Prescriptions: New cyclobenzaprine 10 mg tablet 10 mg PO TID PRN (Reason: muscle spasm) Qty: 14 RF: 0 hydrocodone-acetaminophen 5-325 mg tablet 1 tab PO Q4-6H PRN (Reason: pain) Qty: 10 RF: 0 ondansetron 4 mg tablet,disintegrating 4 mg PO TID-QID PRN (Reason: nausea and vomiting) Qty: 10 RF: 0 No Action cholecalciferol (vitamin D3) PO RF: 0 biotin PO RF: 0 lamotrigine [Lamictal] 200 mg Tablet 200 mg PO DAILY RF: 0 tramadol 50 mg Tablet 50 - 100 mg PO BID RF: 0 dextroamphetamine-amphetamine [Adderall] 30 mg Tablet 60 mg PO DAILY RF: 0 levothyroxine [Levoxyl] 100 mcg Tablet 100 mcg PO DAILY RF: 0 simvastatin 20 mg Tablet 20 mg PO BEDTIME RF: 0 ibuprofen 200 mg Tablet 800 mg PO BID PRN (Reason: Pain) RF: 0 bupropion HCl [Wellbutrin XL] 300 mg Tablet Extended Release 24 Hr 300 mg PO DAILY RF: 0 mupirocin [Centany AT] 2 % Ointment Kit 1 applic TOPICAL BID RF: 0 acetaminophen 325 mg Tablet 975 mg PO TID Qty: 30 RF: 0 aspirin 81 mg Tablet,Delayed Release (Dr/Ec) 81 mg PO BID Qty: 60 RF: 0 oxycodone 10 mg Tablet 10 mg PO Q3HR PRN (Reason: Pain, Severe (7-10)) Qty: 30 RF: 0 meloxicam 7.5 mg tablet 15 mg PO BID Qty: 60 RF: 0 Referrals: Aron Loja MD [Physician] - Ezekiel Isidro MD [Primary Care Provider] -
== END 2020-03-17 23:51 | disposition home or self-care (01) ==
PROVIDERS: Emergency Provider Emergency Medicine; PCP Internal Medicine
DX: S06.0X1A Concussion with loss of consciousness of 30 minutes or less, initial encounter (principal); S02.2XXA Fracture of nasal bones, initial encounter for closed fracture; S00.83XA Contusion of other part of head, initial encounter; R42 Dizziness and giddiness; R11.0 Nausea; W19.XXXA Unspecified fall, initial encounter
CPT/HCPCS: 70450; 70486; 81003; 99282; 99284

== ENCOUNTER 2020-05-14 14:27 | Emergency (ER) | payer MEDICARE, SELFPAY ==
[2018-09-07 16:46] VITALS: BMI 26.6
[2020-05-14 15:07] VITALS: BP 173/79; PULSE 100; RESP 16; TEMP 36.8; O2SAT 97; BMI 24.9
--- NOTE | 2020-05-14 15:12 | DI.RAD.S_ITS ---
PROCEDURE: XR KNEE LT 3V INDICATIONS: fall onto kneecap TECHNIQUE: 3 views of the knee were acquired. COMPARISON: [facility], CR, XR KNEE ARTHRITIC SERIES LT, 05/06/2019, 11:37. [facility] [place], CR, XR KNEE ARTHRITIC SERIES RT, 05/11/2018, 14:51. [facility], CR, XR KNEE RT 1TO2V, 03/25/2018, 15:55. FINDINGS: Bones: No fractures or dislocations. No suspicious bony lesions. There is moderate medial femorotibial joint space narrowing seen, with associated remodeling changes including subchondral sclerosis and osteophyte formation along the jointline. Soft tissues: There is a moderate joint effusion. No suspicious soft tissue calcification. Soft tissue postoperative clips are seen distally. IMPRESSION: No displaced fractures are seen, including involving the tibia. Osteoarthritic degenerative changes are seen, which are most prominent involving the lateral femorotibial compartment. Dictated by: Neo Cam M.D. on 05/14/2020 at 14:59 Approved by: Neo Cam M.D. on 05/14/2020 at 15:03
[2020-05-14] MEDS: KETOROLAC 60 MG/2 ML VIAL 15 MG IM (17:22)
--- NOTE | 2020-05-14 18:14 | ED.LOWEXIN ---
HPI - Extremity Injury (Lower) General Chief Complaint: Extremity Injury, Lower Stated Complaint: GLF last night, left knee pain Time Seen by Provider: 05/14/20 18:03 Source: patient and family Mode of arrival: Wheelchair Limitations: no limitations History of Present Illness HPI Narrative: 69-year-old female nonsmoker with history of her prior subacute subdural hematoma presents with her family in the chief complaint of a severe injury to her left knee. With she injured her knee a few days ago when she was using all of her weight while leaning into a refrigerator to try to move it. She was leaning backwards against and pushing into it when she fell in her knee popped, rapidly became swollen and painful. She denies any dislocation. She denies any numbness, tingling or weakness. She has significant pain with any motion and cannot ambulate or weight bear. She is otherwise well and free of complaint. She denies any fever chills. She takes no blood thinners. MD complaint: knee injury Onset (ago): day(s) Injury: Left: knee Type of Injury: unknown Place: home Severity: severe Relieving factors: immobilization and rest Exacerbating factors: weight bearing, movement and palpation Context: walking and other Associated symptoms: snap/pop sensation, swelling and unable to bear weight Other symptoms: none Treatments prior to arrival: cold therapy Related Data Home Medications Medication Instructions Recorded Confirmed bupropion HCl [Wellbutrin XL] 300 mg PO DAILY 03/17/18 08/11/18 dextroamphetamine-amphetamine 60 mg PO DAILY 03/17/18 08/11/18 [Adderall] ibuprofen 800 mg PO BID PRN 03/17/18 03/17/18 lamotrigine [Lamictal] 200 mg PO DAILY 03/17/18 08/11/18 levothyroxine [Levoxyl] 100 mcg PO DAILY 03/17/18 08/11/18 mupirocin [Centany AT] 1 applic TOPICAL BID 03/17/18 03/17/18 simvastatin 20 mg PO BEDTIME 03/17/18 08/11/18 tramadol 50 - 100 mg PO BID 03/17/18 03/25/18 biotin PO 08/11/18 08/11/18 cholecalciferol (vitamin D3) PO 08/11/18 08/11/18 Previous Rx's Medication Instructions Recorded acetaminophen 975 mg PO TID #30 tab 03/26/18 aspirin 81 mg PO BID #60 tab 03/26/18 meloxicam 15 mg PO BID #60 tab 03/26/18 oxycodone 10 mg PO Q3HR PRN #30 tab 03/26/18 cyclobenzaprine 10 mg PO TID PRN #14 tab 03/17/20 hydrocodone-acetaminophen 1 tab PO Q4-6H PRN #10 tab 03/17/20 ondansetron 4 mg PO TID-QID PRN #10 tab 03/17/20 cyclobenzaprine 10 mg PO TID PRN #10 tab 03/18/20 cyclobenzaprine 10 mg PO TID PRN #14 tab 03/18/20 hydrocodone-acetaminophen 1 tab PO Q4-6H PRN #10 tab 03/18/20 hydrocodone-acetaminophen 1 tab PO Q4-6H PRN #10 tab 03/18/20 ondansetron 4 mg PO Q6H PRN #10 tab 03/18/20 ondansetron 4 mg PO Q6H PRN #10 tab 03/18/20 hydrocodone-acetaminophen 1 tab PO Q4-6H PRN #20 tab 05/14/20 Allergies Allergy/AdvReac Type Severity Reaction Status Date / Time No Known Drug Allergies Allergy Verified 08/11/18 14:35 Review of Systems Constitutional Constitutional: Denies chills, Denies fatigue, Denies fever(s), Denies frequent falls, Denies lethargy and Denies weakness Eyes Eyes: Denies change in vision, Denies eye discharge, Denies irritation and Denies loss of vision ENT Ears, Nose, Mouth, and Throat: Denies change in voice, Denies dizziness, Denies neck pain, Denies sore throat and Denies throat swelling Cardiovascular Cardiovascular: Denies chest pain, Denies irregular heart rhythm, Denies lightheadedness, Denies palpitations, Denies dyspnea, Denies dyspnea on exertion and Denies orthopnea Respiratory Respiratory: Denies cough, Denies dyspnea, Denies dyspnea on exertion and Denies wheezing Gastrointestinal Gastrointestinal: Denies abdominal pain, Denies change in bowel habits, Denies diarrhea, Denies nausea and Denies vomiting Musculoskeletal Musculoskeletal: Reports abnormal gait, Reports arthralgias, Reports joint swelling, Reports limited range of motion, Denies neck pain and Denies numbness Integumentary/Breasts Skin/Breast: Denies pruritus, Denies erythema, Denies rash and Denies wounds Neurologic Neurologic: Reports abnormal gait, Denies behavioral changes, Denies confusion, Denies dizziness, Denies frequent falls, Denies loss of vision, Denies numbness and Denies weakness Psychiatric Psychiatric: Denies anxiety, Denies behavioral changes, Denies confusion, Denies depression, Denies homicidal ideation and Denies suicidal ideation Endocrine Endocrine: Denies fatigue, Denies flushing and Denies palpitations Hematologic/Lymphatic Hematologic/Lymphatic: Denies easy bruising Allergic/Immunologic Allergic/Immunologic: Denies urticaria, Denies throat swelling and Denies wheezing Patient History Medical History Anemia Back pain Degenerative arthritis of right knee Depression Head trauma Headache, migraine Thyroid disease Traumatic subdural hematoma (~1995) Surgical History History of hand surgery (~1970) History of tonsillectomy History of total hysterectomy Knee joint replacement status Family History Grandmother Heart disease Social History household members: spouse and children Smoking Status: Never smoker alcohol intake: current substance use type: does not use Smoking Status: Never smoker alcohol intake frequency: a few times a month Substance Use Type: does not use Exam Narrative Exam Narrative: GENERAL: [69] year old patient appears stated age. Well-nourished, well-developed patient, in mild distress. HEAD: Atraumatic. Normocephalic. EYES: Pupils equal round and reactive. Extraocular motions intact. No scleral icterus. No injection or drainage. ENT: Nose without bleeding, purulent drainage. Throat without erythema, tonsillar hypertrophy or exudate. Airway patent. NECK: Trachea midline. Non tender CARDIOVASCULAR: Regular rate and rhythm without murmurs, gallops, or rubs. RESPIRATORY: Clear to auscultation. Breath sounds equal bilaterally. No wheezes, rales, or rhonchi. GASTROINTESTINAL: Abdomen soft, non-tender, nondistended. EXTREMITIES: Large effusion left knee with very limited range of motion due to pain. No redness or warmth.. BACK: Nontender without deformity or crepitance. No flank tenderness. NEURO: AOx3. SKIN: No rash or erythema of visible areas Initial Vital Signs Initial Vital Signs: Vital Signs Temperature 98.2 F 05/14/20 15:07 Pulse Rate 100 H 05/14/20 15:07 Respiratory Rate 16 05/14/20 15:07 Blood Pressure 173/79 H 05/14/20 15:07 Pulse Oximetry 97 05/14/20 15:07 Procedures Joint Aspiration Joint Asp./Inject. 1: Time Out Performed: Yes Side of body: left Joint Aspirated: knee Ultrasound Guidance: No Skin Prep: Chlorhexidine Local Anesthetic: bupivacaine 0.25% Amount of anesthesia used (mL): 4 Needle Size Used: 18G Fluid Obtained: bloody Total fluid obtained (mL): 100 Patient Tolerated Procedure: Well Complications: none Orthopedic Splinting/Casting Injury #1: Side: left Lower Extremity Injury Location: knee Lower Extremity Immobilizer: knee immobilizer Other Orthopedic Equipment: other (patient has walker at home) Post splinting neuro exam: intact Post splinting vascular exam: intact Placed by: Nursing Course Orders Ordered: ED Orders 05/14/20 15:12 XR knee LT 3V Stat 05/14/20 18:17 CT LE LT wo con Stat Discontinued Medications Hydrocodone Bitart/Acetaminophen (Hydrocodone/Acet 5/325 Prepack) 1 bottle MISC SEEINSTR ONE Stop: 05/14/20 20:37 Last Admin: 05/14/20 20:48 Dose: 1 bottle Documented by: DARREN Bupivacaine HCl (Bupivacaine 0.5% (Pf) Vial) 5 ml SUBCUT NOW ONE Stop: 05/14/20 18:17 Last Admin: 05/14/20 18:51 Dose: 5 ml Documented by: KANU Ketorolac Tromethamine (Ketorolac 60 Mg/2 Ml Vial) 15 mg IM NOW ONE Stop: 05/14/20 17:13 Last Admin: 05/14/20 17:22 Dose: 15 mg Documented by: KANU Ondansetron HCl (Ondansetron 4 Mg Odt Prepack) 1 bottle MISC SEEINSTR ONE Stop: 05/14/20 20:37 Last Admin: 05/14/20 20:48 Dose: 1 bottle Documented by: AUPDIKE Vital Signs Vital signs: Vital Signs - 8 hr 05/14/20 15:07 Temperature 98.2 F Pulse Rate 100 H Respiratory Rate 16 Blood Pressure 173/79 H Pulse Oximetry 97 MDM - Extremity Injury (Lower) Imaging Data Extremity x-ray #1: Radiologist's Impression: Earnestine Hawkins 69 F [address] [id number] ReportSigned Patient: Earnestine Hawkins MMR#: [id number]: 1950cct:[id number]/Sex: 69 / FDate of Service: 05/14/20Loc: EDAccession Number: [id number] Procedure: XR knee LT 3V Ordering Provider: Soraya Patel D.O. PROCEDURE: XR KNEE LT 3V INDICATIONS: fall onto kneecap TECHNIQUE: 3 views of the knee were acquired. COMPARISON: [facility], CR, XR KNEE ARTHRITIC SERIES LT, 05/06/2019, 11:37. [facility], CR, XR KNEE ARTHRITIC SERIES RT, 05/11/2018, 14:51. [facility], CR, XR KNEE RT 1TO2V, 03/25/2018, 15:55. FINDINGS: Bones: No fractures or dislocations. No suspicious bony lesions. There is moderate medial femorotibial joint space narrowing seen, with associated remodeling changes including subchondral sclerosis and osteophyte formation along the jointline. Soft tissues: There is a moderate joint effusion. No suspicious soft tissue calcification. Soft tissue postoperative clips are seen distally. IMPRESSION: No displaced fractures are seen, including involving the tibia. Osteoarthritic degenerative changes are seen, which are most prominent involving the lateral femorotibial compartment. Dictated by: Neo Cam M.D. on 05/14/2020 at 14:59 Approved by: Neo Cam M.D. on 05/14/2020 at 15:03 CT Knee: Radiologist's Impression: [address] [id number] Scan ReportSigned Patient: Earnestine Hawkins MMR#: [id number]: 1950cct:[id number]/Sex: 69 / FDate of Service: 05/14/20Lo: EDAccession Number: [id number] Procedure: CT LE LT wo con Ordering Provider: Velasquez Martin D.O. PROCEDURE: CT LE LT W CON INDICATIONS: fall with severe pain, large effusion, negative Xray TECHNIQUE: Noncontrast 1-1.5 mm axial sections acquired from the mid-patella to the proximal tibia, with coronal and sagittal reformats. COMPARISON: [facility], CR, XR KNEE LT 3V, 05/14/2020, 15:46. FINDINGS: Image quality: Fair. Beam hardening artifact due to the contralateral right knee arthroplasty. Bones: No discrete fracture is identified. No dislocation. Severe joint space loss at the lateral femoral tibial compartment. There is tricompartmental osteophytosis. Soft tissues: A large suprapatellar joint effusion with layering debris or hemorrhage. No convincing lipohemarthrosis demonstrated. Clips at the medial calf. Vascular calcifications. IMPRESSION: Exam is limited by artifact. No discrete fractures identified. Large suprapatellar joint effusion with suspected layering debris/ hemorrhage. 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 Comment: Findings were discussed with Dr. Velasquez Martin at the time of dictation. Dictated by: Ming Parks M.D. on 05/14/2020 at 18:46 Approved by: Ming Parks M.D. on 05/14/2020 at 18:56 Discharge Plan Departure Patient Disposition: Home Clinical Impression: Internal derangement of knee, acute Qualifiers: Laterality: left Qualified Code(s): M23.92 - Unspecified internal derangement of left knee Instructions: DI for Knee Effusion Activity Restrictions/Additional Instructions: *You have been diagnosed with [left knee injury with large effusion, x-ray and CT scan would suggest no fracture, concern for ligamentous tear such as ACL] *What to do: *Take medications as directed: Prescriptions sent to [facility] in [place] *Follow up with [facility], call for an appointment. Let them know you were seen in the Emergency Department and that we ask that you be seen in follow up *Return to ER if you should have any new, worsening or concerning symptoms NO WEIGHT BEARING You have been prescribed narcotic medications. While on these medications you cannot drive or operate heavy machinery. Additionally you cannot sign legal documents or perform any duties such as this. Many people get constipated on narcotic medications so it would be advisable to discuss stool softeners with the pharmacist when you pickle cutter your prescription. Please understand that we cannot provide further refills of narcotics or controlled substances through the ED and your pain management will need to be through your Primary Care Provider Prescriptions: New hydrocodone-acetaminophen 5-325 mg tablet 1 tab PO Q4-6H PRN (Reason: pain) Qty: 20 RF: 0 No Action cholecalciferol (vitamin D3) PO RF: 0 biotin PO RF: 0 lamotrigine [Lamictal] 200 mg Tablet 200 mg PO DAILY RF: 0 tramadol 50 mg Tablet 50 - 100 mg PO BID RF: 0 dextroamphetamine-amphetamine [Adderall] 30 mg Tablet 60 mg PO DAILY RF: 0 levothyroxine [Levoxyl] 100 mcg Tablet 100 mcg PO DAILY RF: 0 simvastatin 20 mg Tablet 20 mg PO BEDTIME RF: 0 ibuprofen 200 mg Tablet 800 mg PO BID PRN (Reason: Pain) RF: 0 bupropion HCl [Wellbutrin XL] 300 mg Tablet Extended Release 24 Hr 300 mg PO DAILY RF: 0 mupirocin [Centany AT] 2 % Ointment Kit 1 applic TOPICAL BID RF: 0 acetaminophen 325 mg Tablet 975 mg PO TID Qty: 30 RF: 0 aspirin 81 mg Tablet,Delayed Release (Dr/Ec) 81 mg PO BID Qty: 60 RF: 0 oxycodone 10 mg Tablet 10 mg PO Q3HR PRN (Reason: Pain, Severe (7-10)) Qty: 30 RF: 0 meloxicam 7.5 mg tablet 15 mg PO BID Qty: 60 RF: 0 cyclobenzaprine 10 mg tablet 10 mg PO TID PRN (Reason: muscle spasm) Qty: 14 RF: 0 hydrocodone-acetaminophen 5-325 mg tablet 1 tab PO Q4-6H PRN (Reason: pain) Qty: 10 RF: 0 ondansetron 4 mg tablet,disintegrating 4 mg PO TID-QID PRN (Reason: nausea and vomiting) Qty: 10 RF: 0 cyclobenzaprine 10 mg tablet 10 mg PO TID PRN (Reason: muscle spasm) Qty: 14 RF: 0 ondansetron 4 mg tablet,disintegrating 4 mg PO Q6H PRN (Reason: nausea and vomiting) Qty: 10 RF: 0 hydrocodone-acetaminophen 5-325 mg tablet 1 tab PO Q4-6H PRN (Reason: pain) Qty: 10 RF: 0 cyclobenzaprine 10 mg tablet 10 mg PO TID PRN (Reason: muscle spasm) Qty: 10 RF: 0 ondansetron 4 mg tablet,disintegrating 4 mg PO Q6H PRN (Reason: nausea and vomiting) Qty: 10 RF: 0 hydrocodone-acetaminophen 5-325 mg tablet 1 tab PO Q4-6H PRN (Reason: pain) Qty: 10 RF: 0 Referrals: Ezekiel Isidro MD [Primary Care Provider] - Cuba Davidson MD [Physician] -
--- NOTE | 2020-05-14 18:17 | DI.CT.S_ITS ---
PROCEDURE: CT LE LT W CON INDICATIONS: fall with severe pain, large effusion, negative Xray TECHNIQUE: Noncontrast 1-1.5 mm axial sections acquired from the mid-patella to the proximal tibia, with coronal and sagittal reformats. COMPARISON: [facility], CR, XR KNEE LT 3V, 05/14/2020, 15:46. FINDINGS: Image quality: Fair. Beam hardening artifact due to the contralateral right knee arthroplasty. Bones: No discrete fracture is identified. No dislocation. Severe joint space loss at the lateral femoral tibial compartment. There is tricompartmental osteophytosis. Soft tissues: A large suprapatellar joint effusion with layering debris or hemorrhage. No convincing lipohemarthrosis demonstrated. Clips at the medial calf. Vascular calcifications. IMPRESSION: Exam is limited by artifact. No discrete fractures identified. Large suprapatellar joint effusion with suspected layering debris/ hemorrhage. 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 Comment: Findings were discussed with Dr. Velasquez Martin at the time of dictation. Dictated by: Ming Parks M.D. on 05/14/2020 at 18:46 Approved by: Ming Parks M.D. on 05/14/2020 at 18:56
[2020-05-14] MEDS: BUPIVACAINE 0.5% (PF) VIAL 5 ML SUBCUT (18:51)
[2020-05-14] MEDS: HYDROCODONE/ACET 5/325 PREPACK 1 BOTTLE MISC (20:48)
[2020-05-14] MEDS: ONDANSETRON 4 MG ODT PREPACK 1 BOTTLE MISC (20:48)
== END 2020-05-14 21:02 | disposition home or self-care (01) ==
PROVIDERS: Emergency Provider Emergency Medicine; PCP Internal Medicine
DX: M23.92 Unspecified internal derangement of left knee (principal); W19.XXXA Unspecified fall, initial encounter
CPT/HCPCS: 20610; 73562; 73700; 96372; 99283; 99284; J1885

== ENCOUNTER 2020-10-08 19:34 | Emergency (ER) | payer MEDICARE, SELFPAY ==
[2018-09-07 16:46] VITALS: BMI 26.6
[2020-10-08 19:39] VITALS: BP 154/78; PULSE 111; RESP 22; TEMP 36.3; O2SAT 100
--- NOTE | 2020-10-08 19:52 | ED_ITS ---
HPI - General Adult General Chief complaint: Urogenital-Female Stated complaint: UTI Time Seen by Provider: 10/08/20 19:47 Source: patient Mode of arrival: Ambulatory Limitations: no limitations History of Present Illness HPI narrative: Patient is a 70-year-old female who is here for evaluation of 2-3 days of worsening dysuria and burning and frequency. At the start of the symptoms she did have some nausea but no vomiting. The seems to have resolved. She did take some [id number] azo which has not helped any of her symptoms. No fevers. Related Data Home Medications Medication Instructions Recorded Confirmed bupropion HCl [Wellbutrin XL] 300 mg PO DAILY 03/17/18 08/11/18 dextroamphetamine-amphetamine 60 mg PO DAILY 03/17/18 08/11/18 [Adderall] ibuprofen 800 mg PO BID PRN 03/17/18 03/17/18 lamotrigine [Lamictal] 200 mg PO DAILY 03/17/18 08/11/18 levothyroxine [Levoxyl] 100 mcg PO DAILY 03/17/18 08/11/18 mupirocin [Centany AT] 1 applic TOPICAL BID 03/17/18 03/17/18 simvastatin 20 mg PO BEDTIME 03/17/18 08/11/18 tramadol 50 - 100 mg PO BID 03/17/18 03/25/18 biotin PO 08/11/18 08/11/18 cholecalciferol (vitamin D3) PO 08/11/18 08/11/18 Previous Rx's Medication Instructions Recorded acetaminophen 975 mg PO TID #30 tab 03/26/18 aspirin 81 mg PO BID #60 tab 03/26/18 meloxicam 15 mg PO BID #60 tab 03/26/18 oxycodone 10 mg PO Q3HR PRN #30 tab 03/26/18 cyclobenzaprine 10 mg PO TID PRN #14 tab 03/17/20 hydrocodone-acetaminophen 1 tab PO Q4-6H PRN #10 tab 03/17/20 ondansetron 4 mg PO TID-QID PRN #10 tab 03/17/20 cyclobenzaprine 10 mg PO TID PRN #10 tab 03/18/20 cyclobenzaprine 10 mg PO TID PRN #14 tab 03/18/20 hydrocodone-acetaminophen 1 tab PO Q4-6H PRN #10 tab 03/18/20 hydrocodone-acetaminophen 1 tab PO Q4-6H PRN #10 tab 03/18/20 ondansetron 4 mg PO Q6H PRN #10 tab 03/18/20 ondansetron 4 mg PO Q6H PRN #10 tab 03/18/20 hydrocodone-acetaminophen 1 tab PO Q4-6H PRN #20 tab 05/14/20 nitrofurantoin monohyd/m-cryst 100 mg PO Q12H 5 Days #10 cap 10/08/20 [Macrobid] phenazopyridine [Pyridium] 100 mg PO TID PRN #6 tab 10/08/20 Allergies Allergy/AdvReac Type Severity Reaction Status Date / Time No Known Drug Allergies Allergy Verified 08/11/18 14:35 Review of Systems Constitutional Constitutional: Denies fever(s) Cardiovascular Cardiovascular: Reports system reviewed and no additional complaints, except as documented Respiratory Respiratory: Reports system reviewed and no additional complaints, except as documented Gastrointestinal Gastrointestinal: Reports abdominal pain, Denies change in bowel habits, Reports nausea and Denies vomiting Genitourinary Genitourinary: Reports dysuria, Reports urinary frequency and Reports urinary urgency Genitourinary: Reports urinary frequency, Reports dysuria and Reports urinary urgency Musculoskeletal Musculoskeletal: Reports system reviewed and no additional complaints, except as documented and Denies back pain Integumentary/Breasts Skin/Breast: Reports system reviewed and no additional complaints, except as documented Neurologic Neurologic: Reports system reviewed and no additional complaints, except as documented Hematologic/Lymphatic On Anticoagulants: No Allergic/Immunologic Allergic/Immunologic: Reports system reviewed and no additional complaints, except as documented Patient History Medical History Anemia Back pain Degenerative arthritis of right knee Depression Head trauma Headache, migraine Thyroid disease Traumatic subdural hematoma (~1995) Surgical History History of hand surgery (~1970) History of tonsillectomy History of total hysterectomy Knee joint replacement status Family History Grandmother Heart disease Social History household members: spouse and children Smoking Status: Never smoker alcohol intake: current substance use type: does not use Smoking Status: Never smoker alcohol intake frequency: a few times a month Substance Use Type: does not use Exam Initial Vital Signs Initial Vital Signs: Vital Signs Temperature 97.4 F L 10/08/20 19:39 Pulse Rate 111 H 10/08/20 19:39 Respiratory Rate 22 10/08/20 19:39 Blood Pressure 154/78 H 10/08/20 19:39 Pulse Oximetry 100 10/08/20 19:39 Const General: cooperative and comfortable Limitations: mental status not altered HENMT Head: normal to inspection and normocephalic Resp Effort & Inspection: normal respiratory effort Cardio Rate: tachycardic GI Inspection: non-distended Back/Spine/Pelvis Back: No CVA tenderness Skin Lesions: no lesions Rashes: no rashes Neuro General: patient alert and patient awake Cognition: normal cognition Speech: speech normal Extrem General: normal to inspection Psych Appearance: grossly normal Course Orders Ordered: ED Orders 10/08/20 19:40 Urine Culture Stat Urine Microscopic Stat Discontinued Medications Nitrofurantoin Macrocrystals (Nitrofurantoin Er 100 Mg Capsule) 100 mg PO NOW ONE Stop: 10/08/20 19:57 Last Admin: 10/08/20 20:05 Dose: 100 mg Documented by: NIHARIKA Phenazopyridine HCl (Phenazopyridine 100 Mg Tablet) 100 mg PO NOW ONE Stop: 10/08/20 19:57 Last Admin: 10/08/20 20:05 Dose: 100 mg Documented by: NIHARIKA Vital Signs Vital signs: Vital Signs - 8 hr 10/08/20 19:39 Temperature 97.4 F L Pulse Rate 111 H Respiratory Rate 22 Blood Pressure 154/78 H Pulse Oximetry 100 Medical Decision Making Lab Data Lab results reviewed: Yes I reviewed the patient's lab results. Labs: Lab Results 10/08/20 Range/Units 19:40 Urine RBC 0-1/hpf (0-5/HPF) Urine WBC 30-100/hpf H (0-5/HPF) Ur Squamous Epith Cells 1-5 /hpf (0-5/HPF) Ur Transition Epith Cell 1-5/hpf (0-5/HPF) Ur Renal Epithelial Cell 0-1/hpf (0-1/HPF) Urine Bacteria Moderate (10-30) H (None) Ur Culture Indicated? Specimen cultured Urine Dip Bedside Urine Glucose Negative Bedside Urine Bilirubin ++ 2 Bedside Urine Ketone - Negative Urine Specific [place] 1.010 Bedside Urine Occult Blood ++ Bedside Urine pH 6 Bedside Urine Protein + 30 Bedside Urine Urobilinogen 2+ 4mg Bedside Urine Nitrite + Positive Bedside Urine Leukocytes +++ 500 Esterase Point of care testing: Urine Dip Bedside Urine Glucose Negative Bedside Urine Bilirubin ++ 2 Bedside Urine Ketone - Negative Urine Specific [place] 1.010 Bedside Urine Occult Blood ++ Bedside Urine pH 6 Bedside Urine Protein + 30 Bedside Urine Urobilinogen 2+ 4mg Bedside Urine Nitrite + Positive Bedside Urine Leukocytes +++ 500 Esterase MDM Narrative Medical decision making narrative: History and physical exam and urinalysis today is consistent with a urinary tract infection. She is nitrite positive. There are no prior urine cultures for review. Her urine today was cultured. Will start on Macrobid and also peridium. She was instructed that a culture was pending at the time of her discharge and that we will contact her if we need to change any antibiotics. She expressed understanding agreement. Discharge Plan Departure Patient Disposition: Home Clinical Impression: Urinary tract infection Instructions: DI for Urinary Tract Infection (UTI) Activity Restrictions/Additional Instructions: A urine culture was pending at the time of your discharge. If for some reason we need to switch you to a different antibiotic we will call you on let you know. You were given your 1st dose here in the emergency department and a prescription for the remainder was sent to [facility] [place]. Return to the emergency department for any new or worsening symptoms Prescriptions: New nitrofurantoin monohyd/m-cryst [Macrobid] 100 mg capsule 100 mg PO Q12H 5 Days Qty: 10 RF: 0 phenazopyridine [Pyridium] 100 mg tablet 100 mg PO TID PRN (Reason: pain) Qty: 6 RF: 0 No Action cholecalciferol (vitamin D3) PO RF: 0 biotin PO RF: 0 lamotrigine [Lamictal] 200 mg Tablet 200 mg PO DAILY RF: 0 tramadol 50 mg Tablet 50 - 100 mg PO BID RF: 0 dextroamphetamine-amphetamine [Adderall] 30 mg Tablet 60 mg PO DAILY RF: 0 levothyroxine [Levoxyl] 100 mcg Tablet 100 mcg PO DAILY RF: 0 simvastatin 20 mg Tablet 20 mg PO BEDTIME RF: 0 ibuprofen 200 mg Tablet 800 mg PO BID PRN (Reason: Pain) RF: 0 bupropion HCl [Wellbutrin XL] 300 mg Tablet Extended Release 24 Hr 300 mg PO DAILY RF: 0 mupirocin [Centany AT] 2 % Ointment Kit 1 applic TOPICAL BID RF: 0 acetaminophen 325 mg Tablet 975 mg PO TID Qty: 30 RF: 0 aspirin 81 mg Tablet,Delayed Release (Dr/Ec) 81 mg PO BID Qty: 60 RF: 0 oxycodone 10 mg Tablet 10 mg PO Q3HR PRN (Reason: Pain, Severe (7-10)) Qty: 30 RF: 0 meloxicam 7.5 mg tablet 15 mg PO BID Qty: 60 RF: 0 hydrocodone-acetaminophen 5-325 mg tablet 1 tab PO Q4-6H PRN (Reason: pain) Qty: 20 RF: 0 cyclobenzaprine 10 mg tablet 10 mg PO TID PRN (Reason: muscle spasm) Qty: 14 RF: 0 hydrocodone-acetaminophen 5-325 mg tablet 1 tab PO Q4-6H PRN (Reason: pain) Qty: 10 RF: 0 ondansetron 4 mg tablet,disintegrating 4 mg PO TID-QID PRN (Reason: nausea and vomiting) Qty: 10 RF: 0 cyclobenzaprine 10 mg tablet 10 mg PO TID PRN (Reason: muscle spasm) Qty: 14 RF: 0 ondansetron 4 mg tablet,disintegrating 4 mg PO Q6H PRN (Reason: nausea and vomiting) Qty: 10 RF: 0 hydrocodone-acetaminophen 5-325 mg tablet 1 tab PO Q4-6H PRN (Reason: pain) Qty: 10 RF: 0 cyclobenzaprine 10 mg tablet 10 mg PO TID PRN (Reason: muscle spasm) Qty: 10 RF: 0 ondansetron 4 mg tablet,disintegrating 4 mg PO Q6H PRN (Reason: nausea and vomiting) Qty: 10 RF: 0 hydrocodone-acetaminophen 5-325 mg tablet 1 tab PO Q4-6H PRN (Reason: pain) Qty: 10 RF: 0 Referrals: Ezekiel Isidro MD [Primary Care Provider] -
[2020-10-08] MEDS: NITROFURANTOIN ER 100 MG CAPSULE PO (20:05)
[2020-10-08] MEDS: PHENAZOPYRIDINE 100 MG TABLET PO (20:05)
[2020-10-08 20:20] LABS: Bacteria Urine Moderate (10-30); Culture Indicated Urine Specimen Cultured; RBC Urine 0-1/HPF (0-5/HPF); Renal Epithelial Cells Urine 0-1/HPF (0-1/HPF); Squamous Epithelial Cell Urine 1-5 /HPF (0-5/HPF); Transitional Epi Cells Urine 1-5/HPF (0-5/HPF); WBC Urine 30-100/HPF (0-5/HPF)
== END 2020-10-08 20:10 | disposition home or self-care (01) ==
PROVIDERS: Emergency Provider Emergency Medicine; PCP Internal Medicine
DX: N39.0 Urinary tract infection, site not specified (principal)
CPT/HCPCS: 81003; 81015; 87077; 87086; 87186; 99283

== ENCOUNTER 2020-10-20 13:56 | Emergency (ER) | payer MEDICARE, SELFPAY ==
[2018-09-07 16:46] VITALS: BMI 26.6
[2020-10-20 14:16] VITALS: BP 163/66; PULSE 88; RESP 14; TEMP 37.1; O2SAT 97; BMI 23.1
[2020-10-20 14:27] LABS: Bacteria Urine None Seen
[2020-10-20 14:53] LABS: Appearance Urine UA CLEAR; Bilirubin Urine UA NEGATIVE (NEGATIVE); Color Urine UA YELLOW; Glucose Urine UA TRACE g/dL (Negative); Ketones Urine UA NEGATIVE (NEGATIVE); Leukocyte Esterase Urine UA 1+ (NEGATIVE); Nitrite Urine UA POSITIVE (Negative); Occult Blood Urine UA 2+ (Negative); Protein Urine UA TRACE (Negative); Specific Gravity Urine UA <=1.005 (1.000-1.035); Urobilinogen Urine UA 0.2 E.U./dL (0.2)
[2020-10-20 15:01] LABS: Amorphous Sediment Urine 2+; Culture Indicated Urine Specimen Cultured; RBC Urine 1-5/HPF (0-5/HPF); WBC Urine 5-10/HPF (0-5/HPF)
[2020-10-20 22:19] VITALS: BP 163/81; PULSE 74; TEMP 37.5; O2SAT 99
--- NOTE | 2020-10-20 22:22 | ED_ITS ---
HPI - Female Genitourinary General Chief complaint: Urogenital-Female Stated complaint: bladder infection Time Seen by Provider: 10/20/20 22:21 Source: patient Mode of arrival: Ambulatory Limitations: no limitations History of Present Illness HPI Narrative: 70-year-old female nonsmoker with history of subdural hematoma presents with a chief complaint of dysuria, frequency and urgency in the absence of any fever, chills nor nausea or vomiting. She was recently seen and diagnosed with a urinary tract infection and took all of her medication as directed. A few days after completion of the antibiotic she developed a recurrence of her symptoms. She denies vaginal bleeding or discharge. MD Complaint: dysuria and UTI Onset (ago): hour(s) Location: suprapubic Severity: mild Quality: Aching and Burning Duration: constant Relieving factors: none Exacerbating factors: urination Urinary symptoms: Dysuria, Frequency and Urgency Patient : No Related Data Home Medications Medication Instructions Recorded Confirmed bupropion HCl [Wellbutrin XL] 300 mg PO DAILY 03/17/18 08/11/18 dextroamphetamine-amphetamine 60 mg PO DAILY 03/17/18 08/11/18 [Adderall] ibuprofen 800 mg PO BID PRN 03/17/18 03/17/18 lamotrigine [Lamictal] 200 mg PO DAILY 03/17/18 08/11/18 levothyroxine [Levoxyl] 100 mcg PO DAILY 03/17/18 08/11/18 mupirocin [Centany AT] 1 applic TOPICAL BID 03/17/18 03/17/18 simvastatin 20 mg PO BEDTIME 03/17/18 08/11/18 tramadol 50 - 100 mg PO BID 03/17/18 03/25/18 biotin PO 08/11/18 08/11/18 cholecalciferol (vitamin D3) PO 08/11/18 08/11/18 Previous Rx's Medication Instructions Recorded acetaminophen 975 mg PO TID #30 tab 03/26/18 aspirin 81 mg PO BID #60 tab 03/26/18 meloxicam 15 mg PO BID #60 tab 03/26/18 oxycodone 10 mg PO Q3HR PRN #30 tab 03/26/18 cyclobenzaprine 10 mg PO TID PRN #14 tab 03/17/20 hydrocodone-acetaminophen 1 tab PO Q4-6H PRN #10 tab 03/17/20 ondansetron 4 mg PO TID-QID PRN #10 tab 03/17/20 cyclobenzaprine 10 mg PO TID PRN #10 tab 03/18/20 cyclobenzaprine 10 mg PO TID PRN #14 tab 03/18/20 hydrocodone-acetaminophen 1 tab PO Q4-6H PRN #10 tab 03/18/20 hydrocodone-acetaminophen 1 tab PO Q4-6H PRN #10 tab 03/18/20 ondansetron 4 mg PO Q6H PRN #10 tab 03/18/20 ondansetron 4 mg PO Q6H PRN #10 tab 03/18/20 hydrocodone-acetaminophen 1 tab PO Q4-6H PRN #20 tab 05/14/20 phenazopyridine [Pyridium] 100 mg PO TID PRN #6 tab 10/08/20 cefuroxime axetil 500 mg PO BID #14 tab 10/20/20 phenazopyridine [Pyridium] 200 mg PO TID PRN #6 tab 10/20/20 Allergies Allergy/AdvReac Type Severity Reaction Status Date / Time No Known Drug Allergies Allergy Verified 10/20/20 14:16 Review of Systems Constitutional Constitutional: Denies chills, Denies fatigue, Denies fever(s), Denies frequent falls, Denies lethargy and Denies weakness Eyes Eyes: Denies change in vision, Denies eye discharge, Denies irritation and Denies loss of vision ENT Ears, Nose, Mouth, and Throat: Denies change in voice, Denies dizziness, Denies neck pain, Denies sore throat and Denies throat swelling Cardiovascular Cardiovascular: Denies chest pain, Denies irregular heart rhythm, Denies lightheadedness, Denies palpitations, Denies dyspnea, Denies dyspnea on exertion and Denies orthopnea Respiratory Respiratory: Denies cough, Denies dyspnea, Denies dyspnea on exertion and Denies wheezing Gastrointestinal Gastrointestinal: Denies abdominal pain, Denies change in bowel habits, Denies diarrhea, Denies nausea and Denies vomiting Genitourinary Genitourinary: Reports dysuria and Reports urinary urgency Genitourinary: Reports dysuria and Reports urinary urgency Musculoskeletal Musculoskeletal: Denies neck pain and Denies numbness Integumentary/Breasts Skin/Breast: Denies pruritus, Denies erythema, Denies rash and Denies wounds Neurologic Neurologic: Denies behavioral changes, Denies confusion, Denies dizziness, Denies frequent falls, Denies loss of vision, Denies numbness and Denies weakness Psychiatric Psychiatric: Denies anxiety, Denies behavioral changes, Denies confusion, Denies depression, Denies homicidal ideation and Denies suicidal ideation Endocrine Endocrine: Denies fatigue, Denies flushing and Denies palpitations Hematologic/Lymphatic Hematologic/Lymphatic: Denies easy bruising Allergic/Immunologic Allergic/Immunologic: Denies urticaria, Denies throat swelling and Denies wheezing Patient History Medical History Anemia Back pain Degenerative arthritis of right knee Depression Head trauma Headache, migraine Thyroid disease Traumatic subdural hematoma (~1995) Surgical History History of hand surgery (~1970) History of tonsillectomy History of total hysterectomy Knee joint replacement status Family History Grandmother Heart disease alcohol intake frequency: holidays/special occasions only Substance Use Type: does not use Exam Narrative Exam Narrative: GEN: AOx3 and in mild distress EYES: Pupils are equal, round, and reactive to light and accommodation. Extraoccular muscles are intact bilaterally. There is no subconjunctival hemorrhage or exudate. CHEST: Lungs are clear to auscultation bilaterally and free of wheezes, rales, or rhonchi. Heart rate is regular rhythm, there are no murmurs, clicks, rubs, or gallops. There is no chest wall tenderness. ABD: Abdomen is soft and Mildly tender in the suprapubic region. There is no guarding or rebound. Bowel sounds are normal in all 4 quadrants. There is no mass or organomegaly. BACK: Back is nontender and free of any obvious external abnormalities. Patient exam is absent of any decreased range of motion, muscle spasm, CVA tenderness, or vertebral point tenderness. There are no symptoms of cauda equina such as saddle anesthesia, and decreased reflexes, decreased sensation or strength. EXT: Full painless ROM of all extremities with no loss of sensation or strength. SKIN: Warm, pink, and dry. No erythema or rash Initial Vital Signs Initial Vital Signs: Vital Signs Temperature 98.8 F 10/20/20 14:16 Pulse Rate 88 10/20/20 14:16 Respiratory Rate 14 10/20/20 14:16 Blood Pressure 163/66 H 10/20/20 14:16 Pulse Oximetry 97 10/20/20 14:16 Course Orders Ordered: Discontinued Medications Cefuroxime Axetil (Cefuroxime 250 Mg Tablet) 500 mg PO NOW ONE Stop: 10/20/20 22:25 Last Admin: 10/20/20 22:28 Dose: 500 mg Documented by: ROSE Phenazopyridine HCl (Phenazopyridine 100 Mg Tablet) 400 mg PO NOW ONE Stop: 10/20/20 22:29 Last Admin: 10/20/20 22:33 Dose: 400 mg Documented by: ROSE Vital Signs Vital signs: Vital Signs - 8 hr 10/20/20 22:19 Temperature 99.5 F Pulse Rate 74 Blood Pressure 163/81 H Pulse Oximetry 99 MDM - Female Genitourinary Lab Data Labs: Lab Results 10/20/20 Range/Units 14:21 Urine Color Yellow Urine Appearance Clear Urine pH 7.0 (4.5-8.0) Ur Specific [place] <=1.005 (1.000-1.035) Urine Protein Trace H (Negative) Urine Glucose (UA) Trace H (Negative) g/dL Urine Ketones Negative (NEGATIVE) Urine Occult Blood 2+ H (Negative) Urine Nitrate Positive H (Negative) Urine Bilirubin Negative (NEGATIVE) Urine Urobilinogen 0.2 (0.2) E.U./dL Ur Leukocyte Esterase 1+ H (NEGATIVE) Urine RBC 1-5/hpf (0-5/HPF) Urine WBC 5-10/hpf H (0-5/HPF) Amorphous Sediment 2+ Urine Bacteria None seen (None) Ur Culture Indicated? Specimen cultured MDM Narrative Medical decision making narrative: patient with urinary complaints and no systemic findings such as fever, chills nor nausea or vomiting. She is comfortable, stable and shows no signs of sepsis. She is appropriate for discharge. She agrees with and understands the diagnosis. Return precautions giv Discharge Plan Departure Patient Disposition: Home Clinical Impression: Urinary tract infection Qualifiers: Urinary tract infection type: acute cystitis Hematuria presence: with hematuria Qualified Code(s): N30.01 - Acute cystitis with hematuria Instructions: DI for Urinary Tract Infection (UTI) Activity Restrictions/Additional Instructions: *You have been diagnosed with [urinary tract infection] *What to do: *Please continue to take your regular medications as directed. [ x] New medication prescriptions sent to your pharmacy: [[facility] ] [ ] New medication written as a paper prescription [ ] No new medications given *Please follow up with your primary care provider in 2-3 days, call for an appointment. Let them know you were seen in the Emergency Department and that we ask that you be seen in follow up. We will electronically transmit a record of today's note if your PCP is in our system *If you do not have a primary care provider please contact the [facility] Resource line at [phone]. They will ask some questions about your medical history and help get you set up with a doctor in the community. *Return to Emergency Department if you should have any new, worsening or concerning symptoms, such as [fever greater than 101 F, shaking chills, worsening pain, persistent vomiting or other bothersome symptoms] Prescriptions: New cefuroxime axetil 500 mg tablet 500 mg PO BID Qty: 14 RF: 0 phenazopyridine [Pyridium] 200 mg tablet 200 mg PO TID PRN (Reason: pain) Qty: 6 RF: 0 No Action cholecalciferol (vitamin D3) PO RF: 0 biotin PO RF: 0 lamotrigine [Lamictal] 200 mg Tablet 200 mg PO DAILY RF: 0 tramadol 50 mg Tablet 50 - 100 mg PO BID RF: 0 dextroamphetamine-amphetamine [Adderall] 30 mg Tablet 60 mg PO DAILY RF: 0 levothyroxine [Levoxyl] 100 mcg Tablet 100 mcg PO DAILY RF: 0 simvastatin 20 mg Tablet 20 mg PO BEDTIME RF: 0 ibuprofen 200 mg Tablet 800 mg PO BID PRN (Reason: Pain) RF: 0 bupropion HCl [Wellbutrin XL] 300 mg Tablet Extended Release 24 Hr 300 mg PO DAILY RF: 0 mupirocin [Centany AT] 2 % Ointment Kit 1 applic TOPICAL BID RF: 0 acetaminophen 325 mg Tablet 975 mg PO TID Qty: 30 RF: 0 aspirin 81 mg Tablet,Delayed Release (Dr/Ec) 81 mg PO BID Qty: 60 RF: 0 oxycodone 10 mg Tablet 10 mg PO Q3HR PRN (Reason: Pain, Severe (7-10)) Qty: 30 RF: 0 meloxicam 7.5 mg tablet 15 mg PO BID Qty: 60 RF: 0 hydrocodone-acetaminophen 5-325 mg tablet 1 tab PO Q4-6H PRN (Reason: pain) Qty: 20 RF: 0 cyclobenzaprine 10 mg tablet 10 mg PO TID PRN (Reason: muscle spasm) Qty: 14 RF: 0 hydrocodone-acetaminophen 5-325 mg tablet 1 tab PO Q4-6H PRN (Reason: pain) Qty: 10 RF: 0 ondansetron 4 mg tablet,disintegrating 4 mg PO TID-QID PRN (Reason: nausea and vomiting) Qty: 10 RF: 0 cyclobenzaprine 10 mg tablet 10 mg PO TID PRN (Reason: muscle spasm) Qty: 14 RF: 0 ondansetron 4 mg tablet,disintegrating 4 mg PO Q6H PRN (Reason: nausea and vomiting) Qty: 10 RF: 0 hydrocodone-acetaminophen 5-325 mg tablet 1 tab PO Q4-6H PRN (Reason: pain) Qty: 10 RF: 0 cyclobenzaprine 10 mg tablet 10 mg PO TID PRN (Reason: muscle spasm) Qty: 10 RF: 0 ondansetron 4 mg tablet,disintegrating 4 mg PO Q6H PRN (Reason: nausea and vomiting) Qty: 10 RF: 0 hydrocodone-acetaminophen 5-325 mg tablet 1 tab PO Q4-6H PRN (Reason: pain) Qty: 10 RF: 0 phenazopyridine [Pyridium] 100 mg tablet 100 mg PO TID PRN (Reason: pain) Qty: 6 RF: 0 Referrals: Ezekiel Isidro MD [Primary Care Provider] -
[2020-10-20] MEDS: cefUROXime 250 MG TABLET 500 MG PO (22:28)
[2020-10-20] MEDS: PHENAZOPYRIDINE 100 MG TABLET 400 MG PO (22:33)
== END 2020-10-20 22:40 | disposition home or self-care (01) ==
PROVIDERS: Emergency Medicine; Emergency Provider Emergency Medicine; PCP Internal Medicine
DX: N30.01 Acute cystitis with hematuria (principal)
CPT/HCPCS: 81001; 87086; 99283

== ENCOUNTER → 2021-07-04 12:16 | Outpatient (CLI) | payer MEDICARE, SELFPAY ==
[2018-09-07 16:46] VITALS: BMI 26.6
--- NOTE | 2021-07-04 12:20 | DI.RAD.S_ITS ---
PROCEDURE: XR FINGER LT MIN 2V INDICATIONS: LT INDEX FINGER PAIN, R/O INFECTION TECHNIQUE: AP hand, 2 views of the 2nd finger(s) acquired. COMPARISON: None. FINDINGS: Bones: Diffuse osteopenia is seen. Osteoarthritic changes are noted throughout left hand and wrist joints. No gross bony erosive changes are seen. No acute fracture or dislocation. Soft tissues: No suspicious soft tissue calcifications. IMPRESSION: Osteoarthritic changes throughout 2nd digit. No acute fracture or dislocation. No radiographic evidence of osteomyelitis. Dictated by: Vlad Matthews M.D. on 07/04/2021 at 14:10 Approved by: Vlad Matthews M.D. on 07/04/2021 at 14:11
== END ==
PROVIDERS: PCP Internal Medicine; Referring Provider Family Medicine; Visit Provider Family Medicine
DX: L03.012 Cellulitis of left finger (principal)
CPT/HCPCS: 73140

== ENCOUNTER → 2022-03-06 09:54 | Outpatient (CLI) | payer MEDICARE, SELFPAY ==
[2018-09-07 16:46] VITALS: BMI 26.6
[2022-03-06 12:25] LABS: Add Manual Diff / Slide Review NO; Basophils Absolute Auto 0 /uL (0-100); Basophils Percent Auto 0.6 % (0-2); Eosinophils Absolute Auto 100 /uL (0-450); Eosinophils Percent Auto 1.2 % (2-4); Hemoglobin 12.9 g/dL (12.0-16.0); Lymphocytes Absolute Auto 1500 /uL (1100-4500); Mean Corpuscular HGB Conc 33.8 % (30-36); Mean Corpuscular Hemoglobin 31.3 PG (26-34); Mean Corpuscular Volume 92.5 fL (80-100); Monocytes Absolute Auto 300 /uL (0-900); Monocytes Percent Auto 5.8 % (3-14); Neutrophils Absolute Auto 3500 /uL (1500-7000); Neutrophils Percent Auto 65.4 % (50-75); Platelet Count 246 X10^3/uL (150-400); Red Blood Cell Count 4.11 X10^6/uL (4.0-5.2); Red Cell Distribution Width 14.5 % (11.6-14.8); White Blood Cell Count 5.4 X10^3/uL (4.5-11.0)
== END ==
PROVIDERS: PCP Internal Medicine; Referring Provider Orthopaedic Surgery Foot and Ankle Surgery; Visit Provider Orthopaedic Surgery Foot and Ankle Surgery
DX: Z01.818 Encounter for other preprocedural examination (principal); Z01.812 Encounter for preprocedural laboratory examination
CPT/HCPCS: 36415; 85025; 93005; 93010

== ENCOUNTER → 2022-04-02 13:14 | Outpatient (CLI) | payer MEDICARE, SELFPAY ==
[2018-09-07 16:46] VITALS: BMI 26.6
[2022-04-02 14:58] LABS: COVID19 -Nasal RAPID Negative (Negative)
== END ==
PROVIDERS: PCP Internal Medicine; Referring Provider Orthopaedic Surgery Foot and Ankle Surgery; Visit Provider Orthopaedic Surgery Foot and Ankle Surgery
DX: Z20.822 Contact with and (suspected) exposure to COVID-19 (principal)
CPT/HCPCS: 87635; C9803

== ENCOUNTER 2022-04-04 09:34 | Day surgery (SDC) | payer MEDICARE, SELFPAY ==
[2018-09-07 16:46] VITALS: BMI 26.6
[2022-03-27 08:36] VITALS: BMI 24.7
[2022-04-04] VITALS (18 sets, daily range): BP systolic 92–135; BP diastolic 54–82; PULSE 63–94; RESP 9–18; TEMP 35.3–36.9; O2SAT 91–100; BMI 24.1
--- NOTE | 2022-04-04 06:00 | DI.RAD.S_ITS ---
PROCEDURE: XR KNEE LT 1TO2V INDICATIONS: tka- pacu xray TECHNIQUE: 2 view(s) of the knee acquired. COMPARISON: [facility] Moira Otero, CR, XR KNEE 4+ VIEWS RIGHT, 03/04/2022, 15:17. [facility] Sascha, CR, XR KNEE 4+ VIEWS LEFT, 01/07/2022, 16:23. FINDINGS: Bones: Patient is status post knee joint arthroplasty. Hardware components are in expected positions. Visualized bony structures are intact. Soft tissues: Overlying postoperative changes are noted. Surgical clips again seen within the soft tissues of the upper medial calf. IMPRESSION: Expected immediate postoperative appearance of left TKA. Dictated by: Marty Curry [facility] Interpreted: Jennifer Alba MD on 04/04/2022 at 16:03 Approved by: Jennifer Alba M.D. on 04/04/2022 at 16:35
[2022-04-04] MEDS: ACETAMINOPHEN 325 MG TABLET 975 MG PO (10:08)
[2022-04-04] MEDS: PREGABALIN 75 MG CAPSULE PO (10:08)
[2022-04-04] MEDS: CELECOXIB 200 MG CAPSULE PO (10:08)
[2022-04-04] MEDS: LACTATED RINGERS 1,000 ML 42 ML IV ×2 (10:10→13:04)
--- NOTE | 2022-04-04 11:23 | PM.PREOP ---
Pre-operative Note COVID-19 COVID-19 status: Negative Interval Note History & Physical reviewed/Exam performed by Physician: Yes Changes to H&P: No
[2022-04-04] MEDS: CEFAZOLIN 2 GM/100 ML PREMIX 100 ML IV ×2 (12:30→20:29)
[2022-04-04] MEDS: TRANEXAMIC ACID 1,000 MG VIAL 1000 MG INJ (12:40)
--- NOTE | 2022-04-04 12:52 | SUR.OPER ---
Supine on padded OR bed. Pillow under head, arms secured on padded armboards <90 degree abduction. Safety belt across torso. Non-operative leg secured with tape over blanket over lower leg. Operative leg secured in [employer] positioner. Foam padded brace at thigh of operative leg.
[2022-04-04] MEDS: BUPIVACAINE 0.25% (PF) 60 ML, EPINEPHrine 0.3 MG INJ (13:00)
[2022-04-04] MEDS: BUPIVACAINE LIPOSOME 266 MG/20 ML VIAL INJ (13:02)
--- NOTE | 2022-04-04 15:53 | P.OP_ITS ---
Operative Date/Time/Diagnoses Date of procedure: 04/04/22 Time of procedure: 12:30 Pre-op diagnosis: Knee arthritis left M17.12 Post-op diagnosis: same Procedure & Clinicians Procedure: Left total knee arthroplasty CPT code 06020 Same procedure as scheduled: Yes Indications: Patient is a 71-year-old female with end-stage left knee arthritis. She has failed conservative treatments. She has been indicated for a total knee arthroplasty. The risks and benefits of the procedure have been discussed with the patient and given the opportunity to ask questions. The risks of surgery include but are not limited to infection, symptomatic hardware, need for additional procedures, persistence of pain, damage to nerves and blood vessels, posttraumatic arthritis, DVT, PE, cardiopulmonary complications and . The patient expressed a thorough understanding of the risks and benefits of surgery and has elected to proceed. Consent was signed in the office. During the operation, the services of a physician surgical instrument mechanic were medically indicated and necessary to provide the exposure of the operative site for the surgical procedure and to maintain the limb in a proper position to carry out the operation safely and efficiently. Without a qualified operating room assistant being present this would extended the operative procedure and made the procedure technically more difficult to perform. Surgeon: Jacy Red Resident Director: Erin Kelly Click Yes if Unassisted: Yes Anesthesia Type: General, Spinal and Local Operative Notes Findings: End-stage knee arthritis Closure Type: primary Specimen(s): none sent Prosthetic devices, grafts, tissues, transplants, or devices: Jones and nephew Journey 2 B CS femur size 6 Oxinium Tibia size 4 left non porous Left size 3--4 10 mm poly 32 mm x 9 mm round patellar component Estimated Blood Loss (mL): 100 Blood products transfused: none Tourniquet time (min): 119 Procedure in detail: Patient was seen in the preoperative area where the patient and site of surgery were identified in the operative knee was marked informed consent confirmed. This was the left knee. Patient received the appropriate preoperative antibiotics this was 2 g of Ancef. And other preoperative medications and was taken to the operating room placed on operating table in the supine position. Spinal anesthetic were administered. The operative extremity was then prepped and draped in the standard sterile fashion with a nonsterile tourniquet high on the thigh. Patient was placed on the green foam bolsters. A lateral post was placed at the level of the proximal thigh /trochanter area as a lateral post. Formal time-out procedure was performed confirming the patient's side and site of surgery and administration of appropriate preoperative antibiotics and implants were in the room accounted for. All were in agreement. Patient received a preoperative dose of tranexamic acid and then a 2nd dose at tourniquet release Patient was prepped and draped in the standard sterile fashion and the foot was placed into the [facility] leg blount. This was taken into high flexion and the incision was marked out over the anterior knee to the level of the medial tubercle tubercle. The Esmarch was then used for exsanguination and the tourniquet was inflated to 250 mmHg. Was made through the skin and subcutaneous tissue in high flexion this was then brought down into 30? of flexion for the medial parapatellar arthrotomy. A marker pen was used to adeline the arthrotomy site for later repair. Joint fluid was evacuated. The anterior osteophytes and soft tissues were removed. Routine medial release was initially made along the medial proximal tibia with Bovie. The patella was 1st cut using the saw sized and prepped and then subluxed throughout the case and protected. The leg was then taken into extension and the patella was everted and the patella was cut to accommodate the patellar button. This was sized to a 32 mm button for a 9 mm thickness to recreate the original dimensions of the patella. Poly was removed and the protector replaced and the patella was subluxed and the knee was taken back up into flexion and attention was returned to the femur. Then the rotational landmarks of Whitesides line and the trans epicondylar axis were marked on the femur with electrocautery. Then the intramedullary guide for the femur was created. The distal femoral cut was made in 5? of valgus using the intramedullary guide with the cut setting on 0+ as the patient did not have a preoperative flexion contracture. The medial femoral condyle distally was quite prominent compared to the lateral and there will would be no lateral cut at 0 and +2. This was eventually taken down to +4 head just skimmed along the lateral condyle for the distal cut. The ACL and PCL released. The proximal tibia was then cut using the intramedullary guide, taking 7 mm off the less involved side this was the medial plateau. This was a moderate valgus knee. This took about the same laterally. The Chas wing was used to check the slope through the guide. Second pass was made through the tibial cut guide with the saw after the cut tibia was removed plane down about 1 more mm and further smooth then the resection surface. In extension remainders of the medial and lateral menisci were removed. The extension flexion gaps were then checked using both the flexion extension blocks. And was selected for a 10 mm poly femur was then sized and the rotation set using the posterior condyle referencing 3? of external rotation. This measured a size 6. Cut block was then placed and the anterior, posterior and chamfer cuts were then made. The posterior osteophytes and soft tissues were then removed. Then in extension the posterior capsule was injected with a mixture of 40 mL of 0.25% Marcaine and 20 mL of Exparel care to avoid excessive injection posterior laterally. The remainder of this was saved for the capsule and subcutaneous tissue and placed during cement curing. Attention was then returned to the tibia and this was prepared with the rotation set by the extramedullary guide. Lined up with the tibial crest and the 2nd toe. The tibial trial was a floated. This was 1st started with a 5 which is what she had on the other side within the noted that a 4 fit best for this side so the tibial trial 4 was used with the femoral size 6. The tibial trial was then pinned in place and the trial femoral components were placed. Then the intercondylar notch was cut through the femoral trial to create the box this was done with the distal than the proximal drill and then the box cut distally and then proximally. Next the insert was placed and the trial poly placed. This was stable in flexion and extension and there was a 0- 135 degree range of motion. The tibia was then finished with the drill and flange cuts and then this was removed. All trials were removed. The wound and bone was irrigated with puls atile lavage. This was then dried with a sponge. The components were verified and opened and the cement was mixed. Cement was applied to the components and then to the bone then the tibia was cemented in place 1st followed by the femur then the patella. Excess cement was removed. With care looking around the back of the knee. Remainder of the injection was injected around the capsule. trial poly was placed back in the leg was placed into extension for the patellar cementing. After this was cured approximately 15 minutes later and the dilute Betadine solution was placed for at least 3 minutes in the wound this was then irrigated out and the final poly was placed. This was a 10 mm poly. The tourniquet was released hemostasis was achieved. Final 1g of tranexamic acid was given IV at the time of tourniquet release. The capsule was closed with 1. Ethibond suture. Subcutaneous layer was closed with 3-0 Vicryl suture. Skin was closed with a running V lock suture Stratafix Monocryl type suture and Dermabond. An Aquacel dressing was placed. An Quoc wrap was applied. Anesthetic was terminated the patient was woken from anesthesia and taken to recovery room in good condition. There no immediate complications from this procedure. The patient will be maintained on a standard total knee replacement protocol with weight-bearing as tolerated. Complications: none Post-operative Condition: stable Plan for aftercare: Weightbear as tolerated. Work with physical therapy. Discharge home when safe. 81 mg b.i.d. for postoperative DVT prophylaxis. Follow-up in 2 weeks for incision expect leigh. Follow-up in 6 weeks for repeat x-rays
[2022-04-04] MEDS: LACTATED RINGERS 1,000 ML 100 ML IV (16:40)
[2022-04-04] MEDS: OXYCODONE IR 10 MG TABLET PO (16:40)
[2022-04-04] MEDS: KETOROLAC 30 MG/ML VIAL IV ×2 (16:40→23:14)
[2022-04-04] MEDS: ATORVASTATIN 20 MG TABLET 10 MG PO (20:29)
[2022-04-04] MEDS: ASPIRIN EC 81 MG TABLET PO (20:29)
[2022-04-04] MEDS: BENZOCAINE/MENTHOL 1 LOZ PKT 1 EACH PO ×2 (20:29→23:14)
[2022-04-04] MEDS: DOCUSATE 100 MG CAPSULE PO (20:29)
[2022-04-04] MEDS: PANTOPRAZOLE DR 20 MG TABLET PO (21:37)
[2022-04-04] MEDS: ACETAMINOPHEN 325 MG TABLET 650 MG PO (23:14)
[2022-04-05 01:15] VITALS: BP 101/60; PULSE 62; RESP 16; TEMP 36.2; O2SAT 96
[2022-04-05 02:00] VITALS: RESP 14
--- NOTE | 2022-04-05 03:21 | PC.NURSE ---
Pt is AxOx4, needs 1 persona assistance to the bedside commode. VSS, BP was soft at the beginning of shift. However, it is starting to get up over 100s after cont IV fluid and PO fluid. Pt's pain in controlled well with her scheduled pain med. Pt is voiding fine and eating fine. Dressing on L knee is C/D/I. Pt slept well. No other changes. continue monitor.
[2022-04-05] MEDS: ACETAMINOPHEN 325 MG TABLET 650 MG PO ×2 (05:02→11:30)
[2022-04-05] MEDS: LEVOTHYROXINE 100 MCG TABLET PO (05:02)
[2022-04-05] MEDS: CEFAZOLIN 2 GM/100 ML PREMIX 100 ML IV (05:03)
[2022-04-05] MEDS: HYDROMORPHONE 2 MG TABLET PO ×4 (05:31→14:25)
[2022-04-05] MEDS: PANTOPRAZOLE DR 20 MG TABLET PO (06:08)
[2022-04-05 06:40] LABS: Hematocrit 28.6 % (36-46); Hemoglobin 9.7 g/dL (12.0-16.0)
[2022-04-05 08:00] VITALS: BP 103/56; PULSE 64; RESP 16; TEMP 36.5; O2SAT 92
[2022-04-05] MEDS: BENZOCAINE/MENTHOL 1 LOZ PKT 1 EACH PO (08:10)
[2022-04-05] MEDS: buPROPion XL 150 MG TAB 300 MG PO (08:11)
[2022-04-05] MEDS: CHOLECALCIFEROL (VITAMIN D3) 1,000 UNIT TABLET 1000 UNIT PO (08:14)
[2022-04-05] MEDS: ASPIRIN EC 81 MG TABLET PO (08:14)
[2022-04-05] MEDS: DOCUSATE 100 MG CAPSULE PO (08:15)
[2022-04-05] MEDS: lamoTRIgine 100 MG TABLET 200 MG PO (08:15)
[2022-04-05] MEDS: KETOROLAC 30 MG/ML VIAL IV (08:33)
[2022-04-05] MEDS: HYOSCYAMINE 0.125 MG TABLET 0.0625 MG PO (08:41)
--- NOTE | 2022-04-05 09:08 | CM.DANOTE ---
DCP Assessment: Payor confirmed: Medicare & [employer] PCP confirmed: Ezekiel Isidro MD Pt is a 71 y.o. F who presented to the hospital for a planned left TKA surgery with Dr. Red. Pt laying in bed eating breakfast. DCP introduced herself and role. Pt is independent at baseline and lives with her spouse, Alvaro, in a rambler home with three steps to get in the house in [place]. Pt states that she has outpatient PT set up for next week. Pt spouse to transport pt home upon discharge. White board updated. Instructed to call. Pt thankful for discussion. P: Pt to work with PT this morning. Once cleared, anticipate discharge home today via spouse POV. Jeannette Peck RN/MARCO ANTONIO Discharge Planning/Care Management CM Discharge Assessment Start: 04/05/22 09:02 Freq: Status: Active Protocol: Document 04/05/22 09:03 JAMIE (Rec: 04/05/22 09:05 [id number]) Discharge Planning Assessment Assigned Nib Inspector Jeannette Peck RN/MARCO ANTONIO Advance Directives? Yes Advance Directives on File No History Provided By Patient,Medical Record Prior Living Arrangements House Household Members spouse,children Type of transporation used prior to Drives own vehicle admit Independent with ADL's Yes Is patient alert and oriented? Yes Patient/Family Preference OP PT Therapy Discharge Plan Home Transportation Arrangement Referrals Initiated None needed Whiteboard Updated in Patient Room with Yes name and ext. # of Nib Inspector Comment Instructed to call Review Status In Process Please Provide Date Initial DC 04/05/22 Assessment Was Performed Next Review Type Continued Stay Review Pre-Anesthesia Assessment Start: 03/27/22 08:36 Freq: Status: Complete Protocol: Document 03/27/22 08:36 [facility] (Rec: 03/27/22 09:24 [facility] [id number]) Pre-Anesthesia Assessment Patient Information Reviewed Via Phone Assessment Assessment Completed With Patient Diagnostic Results CBC,EKG Comment Labs(CBC only)/ECG @ , COVID screen @ 04/02/22 Primary Care Provider Ezekiel Isidro Medical Clearance Received Yes Seen Specialist in Last 12 Months Yes Specialist Seen Orthopedist,Other Comment PCP clearance 02/13/22 scanned Primary Language Arabic Preferred Language Arabic Media Assistant Required No Height 165.1 cm Weight 67.585 kg Body Mass Index (BMI) 24.7 Hearing Ability Hearing Impaired,Use of Hearing Aid Visual Assist Glasses Dentition Type Dental Implants Barriers to Learning None Hx Anesthesia Reactions No Hx Family Anesthesia Reaction No Hx Malignant Hyperthermia No Hx Blood Transfusions No Anesthesia Review Requested No Analytics Developer No alcohol intake current alcohol intake frequency holidays/special occasions only Smoking Status Never smoker Substance Use Type does not use Pain Present Pain Reported Musculoskeletal Symptoms Abnormal Gait,Difficulty Walking,Joint Pain History of Falling (Recent or History of Yes ) Patient is completely paralyzed or No completely immobile Mental Status Oriented to own ability Is patient on oxygen? No Does patient have BURGESS/SOB No Hx Sleep Apnea No Suspected Sleep Apnea No Currently Taking a Beta Omar No Can You Climb a Flight of Stairs Without No SOB Hx Chest Pain Yes: Remote history, nothing current Hx SOB No Hx Syncope or Dizziness No Anti-Coagulant Therapy No Has a Educational Therapist No Cardiac Testing No Hx Pacemaker/ICD No Pacemaker Rep Required? No Diet Type At Home Regular Dysphagia No Gastrointestinal Symptoms None Bladder Pattern Incontinent, Stress,Nocturia Urinary Catheter Present No Hx Urinary Self Catheterization No Diabetes No Patient No Lactating No Hx Drug Resistant Organism No Presence of External or Internal Medical Yes: Wire in right 2nd finger, Devices right knee prosthesis Have you had any close contact with No someone diagnosed with COVID-19? Received a COVID vaccine? Yes Received all doses? Yes Marital Status Lives With spouse,children Current Living Arrangements House Number of Floors (Floors) One Floor Support System Child/Children,Spouse Patient Discharge Plan Description Return Home Comment Pt advised overnight length of stay per surgeon Feels Safe in Current Environment Yes Been Physically Hurt or Threatened By a No Person in Current Environment Do you have thoughts of harming yourself None or others? Are you currently considering suicide? No Do you have a plan to hurt yourself or No Plan others? Do You Have Any Spiritual Beliefs That No May Affect Your HC Choices? Do You Have Any Cultural Practices That No May Affect Your HC Choices? Comment Denominational Who Can We Speak to About Patient's Care Family, friends Identifying Code for Release of Patient Declines to issue Information Health Care Proxy/Next of Kin Samra Hawkins Health Care Proxy Emergency Contact Name Alvaro () Lindsey ( daughter) Emergency Contact Phone Number Alvaro: [phone] Lindsey: [phone] Advance Directives? Yes Advance Directives on File No Power of Tow Truck Operator Yes: Alvaro Power of Tow Truck Operator Name Alvaro Power of Tow Truck Operator PAC Instructions Do not shave/clip surgical site,Durable medical equipment ,Medications to take/avoid, Nasal antibiotic,No ETOH/ petroleum product on skin DOS, NPO,Pre-surgical wash,Sturdy shoes/comfortable clothes,Do not bring valuables and remove jewelry
--- NOTE | 2022-04-05 09:09 | P.DS_ITS ---
History of Present Illness History of Present Illness Date Patient Seen: 04/05/22 Time Patient Seen: 09:10 Chief complaint: L-TKA Narrative: Patient is complaining of increasing left knee pain throughout the night. She notes the pain medications are controlling her pain well. She is not worked with physical therapy yet. She also notes she has mild decreased sensation in her left leg. Her is at bedside. She denies any dizziness or lightheadedness. Overall she is feeling well would like to be discharged home today. Discharge Providers Provider Discharge Date: 04/05/22 Primary care physician: Ezekiel Isidro MD Consults: 04/04/22 15:56 Consult to Discharge Planning Routine Comment: Consult to Physical Therapy Evaluate & Treat Comment: Physician Instructions: postop TKA protocol Discharge provider: Erin Kelly PA-C Summary Hospital Course Discharge Diagnosis: Left knee osteoarthritis Hospital Course: Operative Date/Time/Diagnoses Date of procedure: 04/04/22 Time of procedure: 12:30 Procedure & Clinicians Procedure: Left total knee arthroplasty CPT code 51939 Same procedure as scheduled: Yes Indications: Patient is a 71-year-old female with end-stage left knee arthritis.? She has failed conservative treatments.? She has been indicated for a total knee arthroplasty.? The risks and benefits of the procedure have been discussed with the patient and given the opportunity to ask questions.? The risks of surgery include but are not limited to infection, symptomatic hardware, need for additional procedures, persistence of pain, damage to nerves and blood vessels, posttraumatic arthritis, DVT, PE, cardiopulmonary complications and .? The patient expressed a thorough understanding of the risks and benefits of surgery and has elected to proceed.? Consent was signed in the office. During the operation, the services of a physician surgical appliance fitter were medically indicated and necessary to provide the exposure of the operative site for the surgical procedure and to maintain the limb in a proper position to carry out the operation safely and efficiently.? Without a qualified travel assistant madneep briceño present this would extended the operative procedure and made the procedure technically more difficult to perform. Surgeon: Jacy Red Customer Service Coordinator: Erin Kelly Click Yes if Unassisted: Yes Anesthesia Type: General, Spinal and Local Operative Notes Findings: End-stage knee arthritis Closure Type: primary Specimen(s): none sent Prosthetic devices, grafts, tissues, transplants, or devices: Jones and nephew Journey? 2 B CS femur size 6 Oxinium Tibia size 4 left non porous Left size 3--4 10 mm poly 32 mm x 9 mm round patellar component Estimated Blood Loss (mL): 100 Blood products transfused: none Tourniquet time (min): 119 Status at Discharge Cognitive/behavioral status at discharge: at baseline, oriented Functional status at discharge: uses cane/walker Overall status at discharge: patient is progressing back to baseline Exam Vital Signs (past 8 hours): - 04/05/22 01:15 04/05/22 02:00 04/05/22 08:00 Temperature 97.1 F L 97.7 F Pulse Rate 62 64 Respiratory Rate 16 14 16 Blood Pressure 101/60 103/56 L Pulse Oximetry 96 92 Oxygen Flow Rate 0 0 Oxygen Delivery Method Room Air Oxygen Flow Rate 0 Narrative Exam Narrative: Pleasant 71-year-old female, resting comfortably in bed, no acute distress. Her is at bedside. Left knee dressing is clean, dry, intact. Bilateral lower extremity: Motor functions are grossly intact, she is mildly decreased sensation in her left lower extremity over the lateral malleolus, otherwise sensation is grossly intact, calves are soft and nontender to palpation. Objective Labs Result Diagrams: 04/05/22 06:19 Labs: Laboratory Results - last 24 hr 04/05/22 06:19 Hgb 9.7 L Hct 28.6 L PFSH Medical History Anemia Back pain Degenerative arthritis of right knee Depression Diverticulosis Head trauma Headache, migraine Thyroid disease Traumatic subdural hematoma (~1995) Surgical History History of hand surgery (~1970) History of tonsillectomy History of total hysterectomy History of total right knee replacement (03/25/18) Hx of colonoscopy with polypectomy (2020) Hx of esophagogastroduodenoscopy (2020) Knee joint replacement status Family History Grandmother Heart disease Social History household members: spouse and children Smoking Status: Never smoker alcohol intake: current substance use type: does not use Discharge Assessment & Plan Assessment and Plan Assessment: -stable status post left total knee arthroplasty -postoperative hemorrhagic anemia, asymptomatic Plan of Treatment: -mobilize with PT. Weightbearing as tolerated with front wheel walker or cane -continue with multimodal pain management. The patient already has prescriptions for oxycodone, ketorolac, Vistaril at home. -aspirin 81 mg b.i.d. x6 weeks for DVT prophylaxis -DC home once cleared by PT Discharge Plan Discharge Plan Patient Disposition: Home Discharge orders & Medications Discharge Orders: Discharge (Order); Ordered 04/05/22 Ordered By: Erin Kelly Prescriptions: New oxycodone 5 mg tablet 5 mg PO Q4H PRN (Reason: pain) Qty: 40 0RF Rx Instructions: postop exempt ketorolac 10 mg tablet 10 mg PO Q6H 5 Days Qty: 20 0RF hydroxyzine pamoate [Vistaril] 25 mg capsule 25 mg PO QID PRN (Reason: nausea and vomiting) Qty: 20 1RF aspirin 81 mg Tablet,Delayed Release (Dr/Ec) 81 mg PO BID 42 Days Qty: 84 0RF Rx Instructions: Prevent blood clots Continued lamotrigine [Lamictal] 200 mg Tablet 200 mg PO DAILY dextroamphetamine-amphetamine [Adderall] 30 mg Tablet 60 mg PO DAILY Rx Instructions: Before breakfast levothyroxine [Levoxyl] 100 mcg Tablet 100 mcg PO DAILY simvastatin 20 mg Tablet 20 mg PO BEDTIME bupropion HCl [Wellbutrin XL] 300 mg Tablet Extended Release 24 Hr 300 mg PO DAILY acetaminophen 500 mg Capsule 1,000 mg PO DAILY PRN (Reason: Pain) cholecalciferol (vitamin D3) [Vitamin D3] 50 mcg (2,000 unit) Capsule 50 mcg PO DAILY omeprazole 20 mg Capsule,Delayed Release(Dr/Ec) 20 mg PO BID hyoscyamine sulfate 0.125 mg Tablet 0.0625 mg PO BID Follow up/Referrals: Jacy Red MD [Physician] - As previously scheduled (10-14 days for postoperative visit) Ezekiel Isidro MD [Primary Care Provider] - Diet/Activity/Treatments Diet: Diet as Tolerated Other treatments: Medications: -Aspirin 81mg twice daily x6 weeks to prevent blood clots. -OTC Tylenol 500 mg 1 tablet every 4 hours as needed for pain/fever. Max 6 tablets per day. (take scheduled every 4-6 hours for the first few days to week after schedule to help stay on top of your pain) -IF you have been given a Toradol/ketorolac prescription, this is a very strong anti-inflammatory. Do not take [id number]-yoetxnx anti-inflammatories (ibuprofen, Aleve, Advil, Motrin prescription anti-inflammatory, Celebrex or meloxicam) whil e taking the Toradol/ketorolac. Once you are finished with this prescription, then you can resume begu-gnm-zfnssyz or other anti-inflammatories. You can still take your narcotic pain medication and Tylenol while taking the Toradol/ketorolac. -Oxycodone 5 mg take 1-2 tablets (5-10mg) every 4 hours as needed for moderate- severe pain (narcotic pain medication). (maximum dose for very severe pain would be 3 pills (15mg) every 3 hours) -Vistaril (hydroxyine) 25mg 1 tab every 4 hours as needed for spasms/pain/nausea. -As needed medications: -Ducolax and /or MiraLax as needed for constipation from narcotic pain medications. -Pepcid AC as needed for stomach upset (usually from aspirin or ibuprofen). Dressing/Wound care: -Remove the Quoc wrap 48 hours after surgery. -Keep Aquacell dressing in place until postoperative follow-up office visit. -Okay to shower. Keep wound out of direct water stream. No soaking or submerging until all the scabs fall off (approximately 4-6 weeks). -No lotions, ointments, or scar creams directly to the incision until the wound is healed (4-6 weeks), -Please call the office if dressing becomes wet, soiled, or saturated. Activities: -Weight-bearing as tolerated. Use front wheeled walker, and progress to cane when safe. -Continue with home exercises as directed by your physical therapist. (work on getting your leg. knee fully straight and bending knee as well- motion after knee replacement is very important) -should have outpatient Physical Therapy visits set up to start within 1 week after surgery -Elevate ?toes above the nose if you have significant swelling in your lower leg. (A wedge pillow is easiest.) -Ice your incision as needed for pain/inflammation/swelling. Protect your skin with a folded pillowcase. -Incentive Spirometer (breathing device from hospital): 5-10xs every hour while awake for the first 1-2 weeks. Follow-up: -Follow-up with your surgeon or PA in the office in 10-14 days after surgery. -Follow-up with your surgeon 6 weeks postoperatively. Contact the office if you have any of the following: ? Painful swelling or numbness ? Unrelenting pain ? Fever (over 101?- it is normal to have a low grade fever for the first day or two following surgery) or chills ? Redness around the incisions ? Color changes ? Continuous bleeding or drainage from the incision (a small amount is expected) ? Excessive nausea or vomiting ? Difficulty breathing If you have an emergency that requires immediate attention such as shortness of breath or chest pain, call 911 or proceed to the nearest emergency room. [facility]: [phone] Pain Medications: It is the policy of [facility] that narcotic medications will only be refilled during office hours. Additionally, due to the alarming rate of narcotic pain medication abuse/dependence, it has become necessary for physician practices to closely manage patient use of prescription narcotic pain relievers, such as Vicodin (Cameron), Percocet, and Oxycodone products. Narcotic pain management in the postoperative period may not exceed 6 weeks. If narcotic pain management is required beyond 90 days, then a referral to a Chronic Pain Specialist will be made. If a request for a medication prescription of refill has been made, the physician must review your chart prior to authorizing the request. Please be patient with office staff. If you call during patient hours, your call may not be returned until the end of the day. Skin/Wound/Dressing Care Report to your healthcare provider any signs of infection, such as:: chills, fever, night sweats, increased pain, unusual drainage and unusual redness Visit Report/Discharge Packet Instructions: DI for Knee Replacement Stand Alone Forms: Surgery Discharge Discharge Data Primary Care Provider: Ezekiel Isidro Attending Provider: Jacy Red VTE Deep Vein Thrombosis/Pulmonary Embolism Present on Admission: No
--- NOTE | 2022-04-05 09:51 | PT.IIE ---
Current Diagnoses Unilateral primary osteoarthritis, left knee (04/04/22) Surgery Performed Operation Date: 04/04/22 11:15 Actual Procedures p Total Knee Arthroplasty(Left) - Jacy Red MD Surgical History (Last Reviewed 04/05/22 @ 09:11 by Erin Kelly PA-C) History of hand surgery (~1970) History of tonsillectomy History of total hysterectomy History of total right knee replacement (03/25/18) Hx of colonoscopy with polypectomy (2020) Hx of esophagogastroduodenoscopy (2020) Knee joint replacement status Medical History (Last Reviewed 04/05/22 @ 09:11 by Erin Kelly PA-C) Anemia Back pain Degenerative arthritis of right knee Depression Diverticulosis Head trauma Headache, migraine Thyroid disease Traumatic subdural hematoma (~1995) Physical Therapy Inpatient Evaluation/Re-Eval M1 PT/OT-IP Prior Functional Status Start: 04/05/22 11:57 Freq: NEEDED Status: Active Protocol: Document 04/05/22 09:51 AB (Rec: 04/05/22 12:13 AB [email or web address]) Medical Review Prior Functional Status Medical History Reviewed Yes Communication able to make needs known Mobility and Gait pt stated that she is independent with all mobilities and ambulation without AD Social History Household Members spouse,children Living Arrangements House Number of Floors (Floors) One Floor Number of Stairs To Enter/Railing? 2 steps without rails to enter the house; there is another option to get in without steps but needs to walk farther( spouse stated that they have a w/c but has a gravel terrain and will be harder to maneuver ); pt prefers to do the stairs . Home Environment Standard Height Toilet,Walk in Shower Home Equipment Front Wheel Walker,Straight Cane,Manual Wheelchair,Shower Seat with Backrest,Hand Held Shower M2 PT-IP Current Condition Start: 04/05/22 11:57 Freq: NEEDED Status: Active Protocol: Document 04/05/22 09:51 AB (Rec: 04/05/22 12:13 AB [email or web address]) Physical Therapy Current Condition Current Condition Evaluation Date 04/05/22 Treatment Diagnosis s/p L TKA; difficulty in walking Onset Date 04/04/22 M3 PT-IP Subjective Start: 04/05/22 11:57 Freq: NEEDED Status: Active Protocol: Document 04/05/22 09:51 AB (Rec: 04/05/22 12:13 AB [id number]) Subjective Physical Therapy Visit Type Type Initial Evaluation Visit Start Time 09:51 Visit Stop Time 10:52 Total Visit Minutes 61 Number of MOTORIZED SQUAD COMMANDING OFFICER Visits 0 Physical Therapy Visit Comments Patient Comments agreeable to do PT Therapy Pain Assessment Pain When Pain Assessed At Rest Pain Present Pain Present Pain Reported Location Left Knee Intensity 10 Scale Used Numeric (0 - 10) Pain Management Techniques Apply Cold,Distraction, Modification of Treatment,Re- positioning,Timing of Activity with Medications M4 PT-IP Mobility and Gait Start: 04/05/22 11:57 Freq: NEEDED Status: Active Protocol: Document 04/05/22 09:51 AB (Rec: 04/05/22 12:13 AB [id number]) PT-Bed Mobility Assessment Supine to Sit Supine to Sit Standby Assistance PT-Transfer Assessment Sit to and From Stand Sit to and from Stand Contact Guard Assistance,1 Person Assistance,Use of Upper Extremities Equipment Transfer Assistive Device Front Wheeled Walker Orthotic/Prosthetic Devices or Brace: No Transfers Transfer Destination Chair,Toilet Transfer Technique ambulated Transfer Ability Level of Assist Contact Guard Assistance,1 Person Assistance,Use of Upper Extremities Comments Mobility Comments pt completed supine to sit SBA . c/o initial dizziness, BP: 112/73. completed sit to stand CGA and ambulated to the chair using fWW ~ 15 ft CGA. pt educated on steadiness and safety with LE during ambulation. completed sit to stand from chair CGA and ambulated to EOB SBA to CGA. caregiver training conducted. educated spouse on ho to use safety belt and how to assist pt. spouse was able to put safety belt on pt and assisted pt with sit to stand and ambulation to the chair using FWW CGA. educated on stair climbing usint SPC and FINANCIAL ENGINEER. pt ambulated from chair to platform step ~ 35 ft using FWW SBA to CGA. completed up/ down step using SPC+FINANCIAL ENGINEER mod A with PT initially assisting and repeated again with spouse assisting. cues provided by PT. pt requested to use the toilet. spouse assisted pt with ambulation to the toilet using FWW CGA. educated pt and spouse regarding safety and techniques with stair climbing. pt and spouse understood. stated that they feel they can manage stairs. pt able to complete toileting SBA and ambulated to the sink with spouse assisting CGA. pt ambulated to the chair using fWW SBA to CGA. positioned pt on the chair. call light and table placed within reach. pt and spouse without further concerns. Gait Assessment Gait Gait Assistance Required: Standby Assistance,Contact Guard Assist Distance (Feet) 35 Able to Maintain Weight Bearing Status Yes During Gait Assistive Devices Assistive Device Gait Belt,Front Wheeled Walker Orthotic/Prosthetic Devices or Brace: No Gait Deviations General Gait Pattern Antalgic,Decreased Stride Length,Decreased Feet Clearance Factors Limiting Gait Function Factors Limiting Gait Function Decreased Activity Tolerance, Decreased Strength,Difficulty Following Directions,Limited Range of Motion,Pain,Poor Balance,Poor Safety Awareness Stair Climbing Assessment Evaluation Level of Assist On Stairs Moderate Assistance Devices Stair Climbing Assistive Devices Straight Cane Technique/Endurance Stair Climbing Direction Ascend and Descend Stair Climbing Technique Step to Step Number of Steps Climbed 1 Query Text: Stair Climbing Set # Repetitions (reps) 2 Comments Stair Climbing Comments used SPC + FINANCIAL ENGINEER PT-Balance Assessment Sitting Balance and Reactions Static Sitting Balance Ability Normal Dynamic Sitting Balance Ability Good Standing Balance and Reactions Static Standing Balance Ability Fair Dynamic Standing Balance Ability Fair Device Used FWW M5 PT-IP Objective Assessments Start: 04/05/22 11:57 Freq: NEEDED Status: Active Protocol: Document 04/05/22 09:51 AB (Rec: 04/05/22 12:13 [email or web address]) Orientation Orientation/Cognition Level of Alertness Alert Orientation Name,Place,Situation Language Function Ability Hard of Hearing Safety Awareness Decreased Safety Awareness Memory Description Short Term Impaired Gross Range of Motion Lower Extremity ROM Assessment Within Functional Limits Strength Lower Extremity Strength Assessment Left Impaired Knee 3+/5 Coordination Assessment Gross Coordination Gross Coordination WNL Sensation Assessment Sensation Gross Sensation WNL Muscle Tone Muscle Tone WNL Yes M6 PT-IP Treatment Start: 04/05/22 11:57 Freq: NEEDED Status: Active Protocol: Document 04/05/22 09:51 AB (Rec: 04/05/22 12:13 AB [email or web address]) Physical Therapy Treatment Exercises Exercises Heel Slides Education Education Provided Precautions,Weight Bearing Status,Post-Op Packet,Safety M7 PT-IP Assessment and Plan Start: 04/05/22 11:57 Freq: NEEDED Status: Active Protocol: Document 04/05/22 09:51 AB (Rec: 04/05/22 12:13 AB [email or web address]) PT Summary Assessment and Plan Potential Rehabilitation Potential Fair Status of Condition at Evaluation Stable Summary Impairments Pain,ROM,Strength,Balance, Coordination,Sensation,Tone, Cognition,Bed Mobility, Transfers,Gait,Activity Tolerance Assessment Summary pt requiring SBA to CGA with transfers and ambulation using FWW and mod A with stair climbing but spouse was able to safely assist pt with mobility. pt plans to go home and spouse to assist. Goals Bed Mobility Goal Independent Transfer Goal Independent,Front Wheeled Walker Gait Goal Independent,Front Wheel Walker Gait Distance 200 Other Goals up/down 2 steps SPC + FINANCIAL ENGINEER CGA Days to Meet Goals 5 Frequency of Treatment Frequency Of Treatment Twice a Day Treatment Plan Physical Therapy Treatment Plan Bed Mobility Training,Transfer Training,Gait Training, Therapeutic Exercise,Balance Retraining,Post Op Education, Discharge Planning,Hot or Cold Pack,Neuromuscular Re-ed, Coordination Retraining,Manual Therapy Weight Bearing Status Weight Bearing Status Weight Bear as Tolerated Allowed Weight Bearing Amount (enter % LLE WBAT or #) (%) Recommendations To Nursing Amount of Assist Needed 1 Person Assist Discharge Recommendations PT Discharge Recommendations Home with Assistance, Outpatient PT Transportation Needs at Discharge Private Vehicle
[2022-04-05] MEDS: HYDROMORPHONE 0.5 MG INJ 0.2 MG IV (11:34)
--- NOTE | 2022-04-05 15:25 | PC.NURSE ---
Pt is A&Ox3, VSS, on RA. She reports having been up to the bathroom several times during the night and is voiding well. L knee pain she rates at 7/10 this a.m. and reports pain is well controlled with toradol, prn dilaudid and ice packs. She tolerates breakfast and lunch well and is cleared by ortho for discharge home and by PT for discharge home today. She and her verbalize understanding of site care, activity, medications, s/sx of infection/complication and follow up care. She is escorted to private vehicle with her for discharge home with all of her belongings including FWW at approximately 1500 this afternoon.
== END 2022-04-05 14:55 | disposition home or self-care (01) ==
LOC: OR 09:35 → AC 09:36
PROVIDERS: PCP Internal Medicine; Referring Provider Orthopaedic Surgery Foot and Ankle Surgery; Visit Provider Orthopaedic Surgery Foot and Ankle Surgery
PROC: 0SRD0JZ Replacement of Left Knee Joint with Synthetic Substitute, Open Approach (ICD-10-PCS; CPT 27447; principal; 2022-04-04 11:15)
DX: M17.12 Unilateral primary osteoarthritis, left knee (principal)
CPT/HCPCS: 27447; 36415; 73560; 85014; 85018; 97162; 97530; C1776; C1713; C9290; J0171; J0330; J0690; J1100; J1170; J1885; J2250; J2405; J2704; J3010

== ENCOUNTER 2023-10-09 10:23 | Emergency (ER) | payer MEDICARE, SELFPAY ==
[2022-04-04 15:57] VITALS: BMI 24.1
[2023-10-09] VITALS (12 sets, daily range): BP systolic 117–135; BP diastolic 64–69; PULSE 76–94; RESP 16–18; TEMP 36.5; O2SAT 95–99; BMI 23.9
[2023-10-09 11:17] LABS: Add Manual Diff / Slide Review NO; Basophils Absolute Auto 0 /uL (0-100); Basophils Percent Auto 0.5 % (0-2); Eosinophils Absolute Auto 0 /uL (0-450); Eosinophils Percent Auto 0.3 % (2-4); Hematocrit 36.8 % (36-46); Hemoglobin 12.6 g/dL (12.0-16.0); Lymphocytes Absolute Auto 1600 /uL (1100-4500); Lymphocytes Percent Auto 16.6 % (25-40); Mean Corpuscular HGB Conc 34.1 % (30-36); Mean Corpuscular Volume 90.8 fL (80-100); Monocytes Absolute Auto 700 /uL (0-900); Monocytes Percent Auto 6.7 % (3-14); Neutrophils Absolute Auto 7300 /uL (1500-7000); Neutrophils Percent Auto 75.9 % (50-75); Platelet Count 273 X10^3/uL (150-400); Red Blood Cell Count 4.05 X10^6/uL (4.0-5.2); Red Cell Distribution Width 14.1 % (11.6-14.8); White Blood Cell Count 9.7 X10^3/uL (4.5-11.0)
[2023-10-09 11:36] LABS: Alanine Aminotransferase 25 IU/L (<35); Albumin 4.4 g/dL (3.5-5.0); Albumin Globulin Ratio 1.6 (1.0-2.8); Alkaline Phosphatase 69 U/L (38-126); Aspartate Aminotransferase 28 IU/L (14-36); BUN Creatinine Ratio 28.4 (6-22); Bilirubin Total 0.8 mg/dL (0.2-1.3); Blood Urea Nitrogen 19 mg/dL (7-17); Calcium 9.2 mg/dL (8.4-10.2); Carbon Dioxide 27 mmol/L (22-32); Chloride 106 mmol/L (98-107); Estimated Glomerular Filt Rate > 60 mL/min (>60); Globulin 2.8 g/dL (1.7-4.1); Glucose 103 mg/dL (80-110); HEMOLYSIS < 15 (0-50); Lipase 28 U/L (23-300); Potassium 3.6 mmol/L (3.4-5.1); Sodium 139 mmol/L (137-145); Total Protein 7.2 g/dL (6.3-8.2)
--- NOTE | 2023-10-09 13:09 | EKG_ITS ---
[facility] [address] [address] Test Date: 2023-10-09 Pat Name: Earnestine Hawkins Department: [facility] Room: Gender: Female Freight Brakeman: : 1950 Requested By: Order Number: [id number] Reading MD: Sudarshan Munson MD Measurements Intervals [place] Rate: 93 P: 62 RI: 164 QRS: 10 QRSD: 84 T: 85 QT: 378 QTc: 469 Interpretive Statements Normal sinus rhythm Electronically Signed On 10-09-2023 14:34:50 PDT by Sudarshan Munson MD
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
--- NOTE | 2023-10-09 16:43 | DI.CT.S_ITS ---
PROCEDURE: CT ABDOMEN PELVIS W CON INDICATIONS: lower abd pain, rectal pain, ? diverticulitis TECHNIQUE: After the administration of intravenous contrast, axial sections acquired from the lung bases to the pubic symphysis. Coronal and sagittal reformats were performed. For radiation dose reduction, the following was used: automated exposure control, adjustment of mA and/or kV according to patient size. COMPARISON: [facility], CT, CT ABDOMEN PELVIS WITH CONTRAST, 07/19/2021, 3:05. FINDINGS: Image quality: Diagnostic Lower chest: Basal scarring and atelectasis. Possible small hiatal hernia versus epiphrenic diverticulum. Liver: Right lobe liver lesion is a presumed cyst versus hemangioma. Gallbladder and biliary system: Unremarkable, nondilated Pancreas: No ductal dilation Spleen: Nonenlarged Adrenals: No discrete nodule Kidneys: No solid mass. No hydronephrosis. Vessels and lymph nodes: No abdominal aortic aneurysm. There are atherosclerotic calcifications. No pathologic lymph nodes by size criteria. Bowel and peritoneum: No evidence of small bowel obstruction. No drainable abscess. There are moderate to severe inflammatory changes of the sigmoid colon. Possible intramural phlegmon measures up to 1.3 cm. There is marked wall thickening and Brenda of colonic fat stranding. Background of extensive colonic diverticulosis. Moderate fecal loading in the upstream colon. Body wall: Anterior abdominal wall postsurgical changes Pelvis: Bladder is unremarkable. Uterus is absent Bones: No acute or suspicious osseous finding. There are degenerative changes. IMPRESSION: Sigmoid diverticulitis on a background of extensive diverticulosis. This is in a similar position compared to 2021 imaging. Inflammatory changes are moderate to severe, with a likely small intramural phlegmon. No drainable abscess. Consider GI follow-up and possible colonoscopy following treatment. Other findings as above. Dictated by: Salvador Candelario M.D. on 10/09/2023 at 17:35 Approved by: Salvador Candelario M.D. on 10/09/2023 at 17:39
[2023-10-09] MEDS: KETOROLAC 30 MG/ML VIAL 15 MG IV (17:08)
[2023-10-09] MEDS: AMOXICILLIN/CLAV 875/125 MG 1 TAB PO (18:07)
== END 2023-10-09 18:25 | disposition home or self-care (01) ==
PROVIDERS: Emergency Provider Emergency Medicine; PCP Internal Medicine
DX: K57.92 Diverticulitis of intestine, part unspecified, without perforation or abscess without bleeding (principal)
CPT/HCPCS: 36415; 74177; 80053; 81003; 83690; 85025; 93005; 96374; 99284; J1885; Q9967

== ENCOUNTER → 2023-10-17 10:51 | Outpatient (CLI) | payer MEDICARE, SELFPAY ==
[2022-04-04 15:57] VITALS: BMI 24.1
--- NOTE | 2023-10-17 10:53 | DI.CT.S_ITS ---
PROCEDURE: CT ABDOMEN PELVIS W CON INDICATIONS: Follow up diverticulitis TECHNIQUE: After the administration of intravenous contrast, axial sections acquired from the lung bases to the pubic symphysis. Coronal and sagittal reformats were performed. For radiation dose reduction, the following was used: automated exposure control, adjustment of mA and/or kV according to patient size. COMPARISON: [facility], CT, CT ABDOMEN PELVIS W CON, 10/09/2023, 17:20. FINDINGS: Lower thorax: The lung bases are clear. Heart size normal. No hiatal hernia. Liver: Normal in size and attenuation. No contour deformity present. Biliary system: No calcified cholelithiasis or pericholecystic inflammation. No intra or extrahepatic bile duct dilatation. Pancreas: Unremarkable without mass or inflammation evident. Spleen: Normal in size and density. Adrenals: Normal morphology and density. Reproductive system: Unremarkable as visualized. Urinary system: Normal renal size and attenuation. No renal calculi, hydronephrosis, or solid mass present. Urinary bladder unremarkable. Gastrointestinal system: Sigmoid diverticulosis. Wall thickening and inflammatory change is much improved. No evidence of perforation or abscess Appendix: No findings to suggest acute appendicitis. Peritoneal spaces: No mesenteric or retroperitoneal adenopathy. No free air. No free fluid. Vasculature: The IVC, aorta and iliac vasculature are unremarkable. Abdominal wall: Abdominal wall intact without evidence of ventral or inguinal hernias. Musculoskeletal: Normal bone mineralization. Degenerative disc disease and arthropathy noted in lower lumbar spine. No acute fractures. Right lower quadrant herniorrhaphy fasteners noted. Left inguinal surgical clips IMPRESSION: Improving sigmoid diverticulitis. No evidence of abscess, perforation or obstruction. Approved by: Bijan Bui M.D. on 10/17/2023 at 18:03
== END ==
LOC: CT 10:52
PROVIDERS: PCP Internal Medicine; Referring Provider Surgery; Visit Provider Surgery
DX: K57.32 Diverticulitis of large intestine without perforation or abscess without bleeding (principal)
CPT/HCPCS: 74177; Q9967